=== PATIENT | female | born 1960 | race Caucasian/White ===

== ENCOUNTER 2017-07-10 01:45 | Inpatient (IN) | payer OTHER ==
[2017-07-10] VITALS (40 sets, daily range): BP systolic 99–169; BP diastolic 61–107; PULSE 103–148; RESP 16–44; TEMP 97.9–100.4; O2SAT 94–100
[2017-07-10] MEDS ORDERED: ETOMIDATE 20 MG/10 ML VIAL ONE (01:50)
[2017-07-10] MEDS ORDERED: PROPOFOL 1000 MG/100 ML INJ 100 ML ONE (01:57)
[2017-07-10] MEDS ORDERED: SODIUM CHLOR 0.9% 1000 ML INJ 1,000 ML IV ONE ×2 (02:03→03:45)
--- NOTE | 2017-07-10 02:13 | PD ---
HPI Chief Complaint: Altered Mental Status Time Seen by Provider: 02:00 Travel History International Travel<30 days: No Contact w/Intl Traveler<30days: No Traveled to known affect area: No History of Present Illness HPI The patient is a reportedly 55 year old female who presents to the [facility] emergency department with a history of altered mentation that it been ongoing since yesterday morning. The patient according to ambulance services resides with her mentally delayed adult daughter. Because of this, the history that was obtained from the daughter was very limited. She reported to ambulance services that the patient had not been acting like herself since yesterday morning. She had not been speaking and had mainly been sleeping. She decided to call ambulance services when she was developing shortness of breath. She reported to ambulance services that the patient has a history of liver cancer. The patient came in without an accurate name and date of , and was unable to speak on arrival, therefore she was placed under FELDMAN status. The patient was noted to have a blood sugar of 130 prior to arrival. The patient was noted to have a pulse in the 140s, respiratory rate of 28, O2 saturation was 95-98% on room air. The patient attempts to follow commands and attempts to speak, however she says nothing intelligible. The patient is very tachypneic on arrival with congested breathing. [facility] Past Medical History Narrative Medical The patient's past medical history according to her daughter is significant for liver cancer and thrombocytopenia. The patient's name was able to be identified and her records pulled up at this facility. The patient's name is Kyleigh Mott. 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 She is followed by for her oncology care. The patient was last seen according to the record by him on June 20, 2017. The patient's recent medical history has been complicated by thrombocytopenia, pulmonary embolism with lower extremity DVT. According to the record, he stated that she is unable to undergo anticoagulation due to her thrombocytopenia. The patient has a history of an abdominal aortic aneurysm, asthma, coronary artery disease, hyperlipidemia, hypertension, chronic renal insufficiency. Cancer: Yes (LUNG/LIVER) Diminished Hearing: No (UTO) Tetanus Vaccination: Unknown Past Surgical History Narrative Surgical The patient's past surgical history is unable to be obtained. The patient's past surgical history according to Dr. Singh's record consists of an adenoidectomy, tonsillectomy, CT-guided liver biopsy. Surgical History: Unable to Obtain Social History Alcohol Use: No (UTO) Tobacco Use: No (UTO) Substance Use: No (UTO) Allergies-Medications (Allergen,Severity, Reaction): Coded Allergies: Unable to Assess (Verified Allergy, Unknown, 07/10/17) Reported Meds & Prescriptions Reported Meds & Active Scripts Active Active Prescriptions or Reported Medications Unobtainable Review of Systems ROS Limitations: Altered Mental Status, Unresponsive Eyes: No: Visual changes Cardiovascular: Positive: Dyspnea on exertion Respiratory: Positive: Shortness of Breath Neurologic: Positive: Weakness (generalized weakness), Change in Mentation Physical Exam Narrative General: The patient is a well-developed, thin appearing female, in acute respiratory distress on arrival, tachypneic, with accessory muscle use. Head and Neck exam: Head is normocephalic atraumatic. Eyes: Extraocular motion is and able to be accomplished in this patient that is in acute respiratory distress. The patient has a disconjugate gaze noted. Nose: Midline septum with pink mucous membranes Mouth: Dentition unremarkable. Moist mucus membranes. Posterior oropharynx is not erythematous. No tonsillar hypertrophy. Uvula midline. Airway patent. Neck: No palpable lymphadenopathy. No nuchal rigidity. No thyromegaly. Cardiovascular: Sinus tachycardia in the 120s to 130s without murmurs, gallops, or rubs. No pulse deficit to the extremities and simultaneous auscultation and palpation of her radial artery. Lungs: Scattered rhonchi throughout bilateral lung moreno with decreased breath sounds in bilateral bases. The patient has accessory muscle use noted. Abdomen: Soft, without tenderness to palpation in all 4 quadrants of the abdomen. No guarding, rebound, or rigidity. Normal bowel sounds are audible. Extremities: No clubbing, cyanosis, or edema. 2+ pulses in bilateral upper extremities, 1+ pulses in bilateral lower extremities. The patient's lower extremities appear to be mottled. Neurologic Exam: The patient is nonverbal on arrival. The patient does follow some commands and opens her mouth for examination. The patient is very tachypneic on arrival. The patient is moving all extremities equally with generalized weakness. The patient has intact sensation over all dermatomes. Skin Exam: No rash noted. Intact skin that is warm and diaphoretic. Data Data Last Documented VS Vital Signs Date Time Temp Pulse Resp B/P Pulse Ox O2 Delivery O2 Flow Rate FiO2 07/10/17 04:26 97.9 129 22 118/82 96 Ventilator 45 Orders Etomidate Inj (Amidate Inj) (07/10/17 01:50) Propofol 1000 Mg/100 Ml Inj (Diprivan 10 (07/10/17 01:57) Electrocardiogram (07/10/17 02:03) Complete Blood Count With Diff (07/10/17 02:03) Comprehensive Metabolic Panel (07/10/17 02:03) Creatine Kinase (Cpk) (07/10/17 02:03) Ckmb (Isoenzyme) Profile (07/10/17 02:03) Troponin I (07/10/17 02:03) B-Type Natriuretic Peptide (07/10/17 02:03) Prothrombin Time / Inr (Pt) (07/10/17 02:03) Act Partial Throm Time (Ptt) (07/10/17 02:03) Arterial Blood Gas (Abg) (07/10/17 02:03) Blood Culture (07/10/17 02:03) C-Reactive Protein (Crp) (07/10/17 02:03) Lipase (07/10/17 02:03) Urinalysis - C+S If Indicated (07/10/17 02:03) Magnesium (Mg) (07/10/17 02:03) Ammonia (07/10/17 02:03) Thyroid Stimulating Hormone (07/10/17 02:03) Chest, Single Ap (07/10/17 02:03) Ct Brain W/O Iv Contrast(Rout) (07/10/17 02:03) Iv Access Insert/Monitor (07/10/17 02:03) Ecg Monitoring (07/10/17 02:03) Oximetry (07/10/17 02:03) Urinary Catheter Insert/Apply (07/10/17 02:03) Lino-Gastric Tube Insert/Mon (07/10/17 02:03) Drug Screen, Random Urine (07/10/17 02:03) Alcohol (Ethanol) (07/10/17 02:03) Lactic Acid Sepsis Protocol (07/10/17 02:03) Etomidate Inj (Amidate Inj) (07/10/17 02:15) Succinylcholine Inj (Quelicin Inj) (07/10/17 02:15) Albuterol-Ipratropium Neb (Duoneb Neb) (07/10/17 02:15) Sodium Chloride 0.9% Flush (Ns Flush) (07/10/17 02:15) Sodium Chlor 0.9% 1000 Ml Inj (Ns 1000 M (07/10/17 02:03) Propofol 1000 Mg/100 Ml Inj (Diprivan 10 (07/10/17 02:15) ^ Infusion (07/10/17 02:03) RASS (07/10/17 02:03) Neurological Rass Scale SHARITA.Q2H (07/10/17 02:03) Sodium Chlorid 0.9% 500 Ml Inj (Ns 500 M (07/10/17 02:30) Albuterol-Ipratropium Neb (Duoneb Neb) (07/10/17 02:30) Furosemide Inj (Lasix Inj) (07/10/17 02:30) CKMB (07/10/17 02:10) CKMB% (07/10/17 02:10) Sodium Chlor 0.9% 1000 Ml Inj (Ns 1000 M (07/10/17 03:45) Albuterol-Ipratropium Neb (Duoneb Neb) (07/10/17 03:45) Resp Ventilation- Pressure (07/10/17 ) Vancomycin Inj (Vancomycin Inj) (07/10/17 03:45) Piperacil-Tazo 3.375 Gm Premix (Zosyn 3. (07/10/17 03:45) Diltiazem Inj (Cardizem Inj) (07/10/17 03:45) Diltiazem Inj (Cardizem Inj) (07/10/17 03:45) Salicylates (Aspirin) (07/10/17 03:47) Tylenol (Acetaminophen) (07/10/17 03:47) Ct Pulmonary Angiogram (07/10/17 04:11) Admit To Inpatient (07/10/17 ) Inpatient Certification (07/10/17 ) Code Status (07/10/17 04:13) Vital Signs (Adult) SHARITA.Q1H (07/10/17 04:13) Activity Bed Rest (07/10/17 04:13) Conveyor Monitor / Telemetry SHARITA.Q8H (07/10/17 04:13) Intake + Output SHARITA.Q8H (07/10/17 04:13) Bedside Glucose SHARITA.BGM (07/10/17 04:13) Urinary Catheter Management SHARITA.Q8H (07/10/17 04:13) Diet Npo (07/10/17 Breakfast) Sodium Chlor 0.9% 1000 Ml Inj (Ns 1000 M (07/10/17 04:13) Sodium Chloride 0.9% Flush (Ns Flush) (07/10/17 04:15) Sodium Chloride 0.9% Flush (Ns Flush) (07/10/17 09:00) Albuterol-Ipratropium Neb (Duoneb Neb) (07/10/17 10:00) Albuterol Neb (Albuterol Neb) (07/10/17 04:15) Chlorhexidine 0.12% Liq (Peridex 0.12% L (07/10/17 08:00) Pantoprazole Inj (Protonix Inj) (07/10/17 09:00) Complete Blood Count With Diff (07/11/17 06:00) Comprehensive Metabolic Panel (07/11/17 06:00) Creatine Kinase (Cpk) (07/10/17 04:13) Creatine Kinase (Cpk) (07/10/17 10:13) Troponin I (07/10/17 04:13) Troponin I (07/10/17 10:13) Sputum Culture And Gram Stain (07/10/17 04:13) Echo 2d Comp With Doppler (07/10/17 ) Resp Pulse Oximetry (07/10/17 ) Resp Ventilation- Volume (07/10/17 ) Consult Cm-Day 5 Ltac Eval (07/10/17 ) ^ Initiate Protocol (07/10/17 04:13) Instruction (07/10/17 04:13) [facility] Nursing Information (07/10/17 04:15) Chlorhexidine 2% Cloth (Chlorhexidine 2% (07/11/17 04:00) Chlorhexidine 2% Cloth (Chlorhexidine 2% (07/10/17 04:15) Mrsa Pcr Surveillance (07/10/17 04:13) Insulin Aspart Supplemtl Scale (Novolog (07/10/17 06:00) Propofol 1000 Mg/100 Ml Inj (Diprivan 10 (07/10/17 04:15) Lactic Acid (07/10/17 09:00) Basic Metabolic Panel (Bmp) (07/10/17 09:00) Piperacil-Tazo 3.375 Gm Premix (Zosyn 3. (07/10/17 10:00) Consult Neurology (07/10/17 ) Ct Abd/Pel W Iv Contrast(Rout) (07/10/17 ) (Hub Use Only)Inp Phy Cons/Ref (07/10/17 ) Sodium Bicarbonate 8.4% Inj (Sodium Bica (07/10/17 04:45) Sodium Bicarbonate 8.4% Inj (Sodium Bica (07/10/17 04:45) Admit Order (Ed Use Only) (07/10/17 04:46) Labs Laboratory Tests Test 07/10/17 07/10/17 07/10/17 07/10/17 02:10 02:50 04:25 04:30 White Blood Count 10.6 TH/MM3 Red Blood Count 3.30 MIL/MM3 Hemoglobin 10.2 GM/DL Hematocrit 31.3 % Mean Corpuscular Volume 94.7 FL Mean Corpuscular Hemoglobin 30.7 PG Mean Corpuscular Hemoglobin 32.5 % Concent Red Cell Distribution Width 23.1 % Platelet Count 27 TH/MM3 Mean Platelet Volume 9.6 FL Neutrophils (%) (Auto) 62.4 % Lymphocytes (%) (Auto) 17.5 % Monocytes (%) (Auto) 14.8 % Eosinophils (%) (Auto) 4.1 % Basophils (%) (Auto) 1.2 % Neutrophils # (Auto) 6.6 TH/MM3 Lymphocytes # (Auto) 1.9 TH/MM3 Monocytes # (Auto) 1.6 TH/MM3 Eosinophils # (Auto) 0.4 TH/MM3 Basophils # (Auto) 0.1 TH/MM3 CBC Comment AUTO DIFF Differential Comment AUTO DIFF CONFIRMED Platelet Estimate LOW Platelet Morphology Comment ENLARGED Acanthocytes OCC Keratocytes OCC Prothrombin Time 17.8 SEC Prothromb Time International 1.6 RATIO Ratio Activated Partial 28.6 SEC Thromboplast Time Urine Color YELLOW Urine Turbidity HAZY Urine pH 5.5 Urine Specific Bethany 1.025 Urine Protein 100 mg/dL Urine Glucose (UA) NEG mg/dL Urine Ketones 10 mg/dL Urine Occult Blood SMALL Urine Nitrite NEG Urine Bilirubin NEG Urine Urobilinogen LESS THAN 2.0 MG/DL Urine Leukocyte Esterase NEG Urine RBC 1 /hpf Urine WBC 2 /hpf Urine Squamous Epithelial 3 /hpf Cells Urine Hyaline Casts 5 /lpf Urine Mucus FEW /lpf Microscopic Urinalysis Comment CULT NOT INDICATED Sodium Level 136 MEQ/L Potassium Level 5.1 MEQ/L Chloride Level 104 MEQ/L Carbon Dioxide Level 18.3 MEQ/L Anion Gap 14 MEQ/L Blood Urea Nitrogen 33 MG/DL Creatinine 1.45 MG/DL Estimat Glomerular Filtration 31 ML/MIN Rate Random Glucose 146 MG/DL Lactic Acid Level 4.2 mmol/L 3.6 mmol/L Calcium Level 8.7 MG/DL Magnesium Level 2.0 MG/DL Total Bilirubin 0.8 MG/DL Aspartate Amino Transf 55 U/L (AST/SGOT) Alanine Aminotransferase 21 U/L (ALT/SGPT) Alkaline Phosphatase 149 U/L Ammonia 26 MCMOL/L Total Creatine Kinase 114 U/L Creatine Kinase MB 2.3 NG/ML Troponin I 0.11 NG/ML C-Reactive Protein 8.88 MG/DL B-Type Natriuretic Peptide 537 PG/ML Total Protein 6.4 GM/DL Albumin 2.6 GM/DL Lipase 86 U/L Thyroid Stimulating Hormone 1.630 uIU/ML 3rd Gen Urine Opiates Screen NEG Urine Barbiturates Screen NEG Urine Amphetamines Screen NEG Urine Benzodiazepines Screen POS Urine Cocaine Screen NEG Urine Cannabinoids Screen NEG Ethyl Alcohol Level LESS THAN 3 MG/DL Blood Gas Puncture Site RT RADIAL Blood Gas Patient Temperature 98.6 Blood Gas HCO3 15 mmol/L Blood Gas Base Excess -9.4 mmol/L Blood Gas Oxygen Saturation 98 % Arterial Blood pH 7.34 Arterial Blood Partial 30 mmHg Pressure CO2 Arterial Blood Partial 354 mmHG Pressure O2 Arterial Blood Oxygen Content 13.2 Vol % Arterial Blood 2.2 % Carboxyhemoglobin Arterial Blood Methemoglobin 0.4 % Blood Gas Hemoglobin 8.9 G/DL Oxygen Delivery Device VENTILATOR Blood Gas Ventilator Setting PRVC/AC Blood Gas Inspired Oxygen 100 % Salicylates Level LESS THAN 1.7 MG/DL Acetaminophen Level 2.8 MCG/ML MDM Medical Decision Making Medical Screen Exam Complete: Yes Emergency Medical Condition: Yes Medical Record Reviewed: Yes Interpretation(s) Last Impressions Chest X-Ray 07/10/17 0203 Signed Impressions: Service Date/Time: Monday, July 10, 2017 02:19 - CONCLUSION: 1. ET tube in good position. 2. Consolidative infiltrates involving most of the right lung with associated right pleural effusion. Patchy infiltrates in the left lower lung. Ralph Jin MD Differential Diagnosis Pneumonia, versus congestive heart failure, versus intracranial hemorrhage, versus acute coronary syndrome, versus renal failure with pulmonary edema Narrative Course During the course of the patients emergency department visit, the patient had IV access obtained and blood work sent for analysis. The patient states on a tool and gauge inspector with oximetry and blood pressure monitoring. The patient was prepped for rapid sequence intubation. The patient was intubated by me. A Thao catheter was placed to gravity. An OG tube was placed on low intermittent suction. The patient was initially provided etomidate and succinylcholine for intubation. The patient was sedated on propofol on the ventilator. The patients laboratory studies were reviewed and remarkable for a white count of 10.6, hemoglobin 10.2, platelets 27 with monocytes 14.8, CMP is remarkable for a CO2 of 18.3, BUN 33, creatinine 1.45, glucose 146, AST 55, ALT 21, alkaline phosphatase 149, CPK is 114, CK-MB 2.3, troponin I 0.11, C-reactive protein 8.88, BNP 537, albumin 2.6, lipase 86, TSH 1.63, ammonia level is 26, lactic acid 4.2, PT 17.8, INR 1.6, PTT 28.6, acetaminophen is 2.8, urine drug screen is positive for benzodiazepine's, alcohol level less than 3, salicylate less than 1.7, urinalysis shows 100 protein, 10 ketones, small occult blood Radiology studies were reviewed and remarkable for a chest x-ray that shows an endotracheal tube is in good position, consolidative infiltrate involving most of the right lung with associated right pleural effusion, patchy infiltrates in the left lower lung. CT scan of the brain shows focal areas of increased density in the deep white matter tracks on the right possible hemorrhage, lytic lesions of the left frontal bone concerning for metastatic disease, CT scanning of the chest shows no evidence of pulmonary embolism, diffuse bilateral opacities and consolidation in the lungs, large right pleural effusion and significant adenopathy in the middle mediastinum MM right hilum highly suspicious for malignancy. CT scan of the abdomen and pelvis shows findings suggestive of metastatic disease with multiple low-density lesions in the liver as solitary low-density lesion in the inferior spleen and probable left adrenal mass, abdominal aortic aneurysms both measuring 3 cm. The patient has absent enhancement in the inferior left kidney suggesting either an infiltrative process or vascular compromise, multiple abnormalities of the chest described on CT pulmonary angiogram. The patient will be typed and crossmatched for platelet administration and fresh frozen plasma administration. The patient on recurrent evaluation was noted to have brought the red sputum suspicious for pulmonary edema. The patient was given Lasix 40 mg IV. The patient's urine output was monitored closely. The patient had very little urine output noted. The patient was given additional IV fluids initially, she was given 500 mL of normal saline. She was given a second 500 mL IV fluid bolus. She was given DuoNeb 2. Due to a concern of sepsis, the patient was given vancomycin 1 g IV, Zosyn 3.375 g IV. The patient was judiciously hydrated as it appeared that she has pulmonary edema with elevated BNP. The patients results were discussed with the patient, including the plan of care. I explained that further testing and/ or monitoring is indicated based on the patients history, examination, and/ or laboratory findings. Therefore, I recommended admission for additional evaluation. The patient expressed understanding and was agreeable with this plan. The patient was admitted to the hospital in critical and sent to a bed under the care of the elementary instructional coach. Critical Care Narrative Aggregate critical care time was 40 minutes. Time to perform other separately billable procedures was not included in the critical care time. My time did not include minutes spent treating any other patients simultaneously or on activities that did not directly contribute to the patient's treatment. The services I provided to this patient were to treat and/or prevent clinically significant deterioration that could result in: [-] I provided critical care services requiring my management, as noted below: Chart data review, documentation time, medication orders and management, vital sign assessments/reviewing monitor data, ordering and reviewing lab tests, ordering and interpreting/reviewing x-rays and diagnostic studies, care of the patient and discussion of the patient with the admitting physicians. Procedures Procedure Narrative INTUBATION: The patient was put in optimal position for the procedure. Rapid sequence intubation was initiated by me using 20 milligrams of etomidate IV and 100 milligrams of succinylcholine IV. The patient was intubated with a 7-1/2 cuffed endotracheal tube. The patient was intubated with the use of a Mac 4 blade. The patient's cords were easily visualized. Tube placement was confirmed by visualization of the tube and balloon passing through the cords, capnometry and subsequent chest x-ray. Breath sounds were equal and well aerated bilaterally postintubation. No breath sounds over stomach. Patient tolerated procedure well. Diagnosis Primary Impression: Respiratory failure Qualified Code: J96.00 - Acute respiratory failure, unspecified whether with hypoxia or hypercapnia Additional Impressions: Pneumonia Qualified Code: J18.9 - Pneumonia of both lungs due to infectious organism, unspecified part of lung Pleural effusion Thrombocytopenia Metastatic lung cancer (metastasis from lung to other site) Qualified Code: C34.90 - Primary malignant neoplasm of lung metastatic to other site, unspecified laterality Admitting Information Admitting Physician Requests: Admit Scripts Unable to Obtain Active Prescriptions or Reported Meds Nayana Kidd MD Jul 10, 2017 02:13
[2017-07-10] MEDS ORDERED: SODIUM CHLORIDE 0.9% FLUSH 10 ML FLUSH IVF PRN (02:15)
[2017-07-10] MEDS ORDERED: SUCCINYLCHOLINE CHLORIDE 200 MG/10 ML VIAL IVP ONE (02:15)
[2017-07-10] MEDS ORDERED: ETOMIDATE 20 MG/10 ML VIAL IVP ONE (02:15)
[2017-07-10] MEDS ORDERED: RESP: ALBUTEROL 2.5 MG/IPRATROPIUM 0.5 MG NEB (SCH) INH (02:15)
[2017-07-10] MEDS: PROPOFOL 1000 MG/100 ML INJ 100 ML IV SCH ×4 (02:19→18:28)
[2017-07-10] MEDS ORDERED: RESP: ALBUTEROL 2.5 MG/IPRATROPIUM 0.5 MG NEB (SCH) NEB ONE ×2 (02:30→03:45)
[2017-07-10] MEDS ORDERED: SODIUM CHLORID 0.9% 500 ML INJ 500 ML IV ONE (02:30)
[2017-07-10] MEDS ORDERED: FUROSEMIDE 40 MG/4 ML VIAL IV PUSH ONE (02:30)
--- NOTE | 2017-07-10 02:34 | RADRPT ---
EXAM DATE/TIME: 07/10/2017 02:19 [place] COMPARISON: No previous studies available for comparison. INDICATIONS : Short of breath. MEDICAL HISTORY : None. SURGICAL HISTORY : None. ENCOUNTER: Initial ACUITY: 1 day PAIN SCORE: 0/10 LOCATION: Bilateral chest FINDINGS: Endotracheal tube tip well above the simi. Gastric tube side port is projected within the stomach. There is diffuse patchy partially consolidated infiltrate throughout most of the right lung and shira e patchy non-consolidative infiltrates in the lower left lung. There is blunting of the costophrenic angle on the right side suggesting pleural effusion. The heart is upper limits normal size. CONCLUSION: 1. ET tube in good position. 2. Consolidative infiltrates involving most of the right lung with associated right pleural effusion. Patchy infiltrates in the left lower lung. Ralph Jin MD on July 10, 2017 at 2:31 Board Certified Radiologist. This report was verified electronically.
[2017-07-10 02:46] LABS: BLOOD, URINE SMALL (NEG); GLUCOSE,URINE NEG (NEG); HYALINE CAST, URINE 5 /lpf (RARE); KETONE, URINE 10 mg/dL (NEG); MUCUS URINE FEW /lpf (OCC); NITRITE,URINE NEG (NEG); PH, URINE 5.5 (5.0-8.5); SQUAMOUS EPITHELIAL CELL URINE 3 /hpf (0-5); URINE COLOR YELLOW (YELLW/STRAW)
[2017-07-10 02:48] LABS: COMMENT (UR) CULT NOT INDICATED; CULTURE IF INDICATED CULT NOT INDICATED
[2017-07-10 02:50] LABS: AUTOMATED NEUTROPHIL # 6.6 TH/MM3 (1.8-7.7); BASOPHIL # 0.1 TH/MM3 (0-0.2); BASOPHIL % 1.2 % (0.0-2.0); EOSINOPHIL # 0.4 TH/MM3 (0-0.4); EOSINOPHIL % 4.1 % (0.0-4.0); HEMATOCRIT 31.3 % (35.0-46.0); LYMPH % 17.5 % (9.0-44.0); LYMPHOCYTE # 1.9 TH/MM3 (1.0-4.8); MEAN CELL VOLUME 94.7 FL (80.0-100.0); MEAN CORPUSCULAR HEMOGLOBIN 30.7 PG (27.0-34.0); MEAN CORPUSCULAR HGB CONC 32.5 % (32.0-36.0); MONO % 14.8 % (0.0-8.0); NEUT % 62.4 % (16.0-70.0); PLATELET COUNT 27 TH/MM3 (150-450); RED CELL DISTRIBUTION WIDTH 23.1 % (11.6-17.2); WHITE BLOOD COUNT 10.6 TH/MM3 (4.0-11.0)
[2017-07-10 02:53] LABS: HEMO FLAGS AUTO DIFF
[2017-07-10 03:07] LABS: ANION GAP 14 MEQ/L (5-15); AST (GOT) 55 U/L (15-37); BICARBONATE 18.3 MEQ/L (21.0-32.0); BLOOD UREA NITROGEN 33 MG/DL (7-18); CHLORIDE 104 MEQ/L (98-107); GLOMERULAR FILTRATION RATE 31 ML/MIN (>89); POTASSIUM 5.1 MEQ/L (3.5-5.1); SODIUM (NA) 136 MEQ/L (136-145)
[2017-07-10 03:08] LABS: ALCOHOL LESS THAN 3 MG/DL (0-5); APTT (PATIENT) 28.6 SEC (24.3-30.1); INTERNATIONAL NORMALIZED RATIO 1.6 RATIO; PROTHROMBIN TIME - PATIENT 17.8 SEC (9.8-11.6)
[2017-07-10 03:10] LABS: BLOOD GAS BASE EXCESS -9.4 mmol/L (-2-2); BLOOD GAS CARBOXYHEMOGLOBIN 2.2 % (0-4); BLOOD GAS HCO3 15 mmol/L (22-26); BLOOD GAS METHEMOGLOBIN 0.4 % (0-2); BLOOD GAS O2 HGB SATURATION 98 % (90-100); BLOOD GAS OXYGEN CONTENT 13.2 Vol % (12.0-20.0); BLOOD GAS PCO2 30 mmHg (38-42); BLOOD GAS PO2 354 mmHG (61-120); BLOOD GAS TOTAL HGB 8.9 G/DL (12.0-16.0); CRITICAL VALUE YES; OXYGEN DEVICE VENTILATOR; TEMP CORR TO 98.6
[2017-07-10 03:11] LABS: DRAW SITE RT RADIAL; FIO2 100 %; NUMBER OF ARTERIAL PUNCTURES 1; STAT YES; ULNAR PULSE PRESENT; VENT SETTINGS PRVC/AC
[2017-07-10 03:22] LABS: ALKALINE PHOSPHATASE 149 U/L (45-117); ALT (GPT) 21 U/L (10-53); CREATINE KINASE 114 U/L (26-192); TOTAL BILIRUBIN ADULT 0.8 MG/DL (0.2-1.0)
[2017-07-10 03:25] LABS: SCAN/DIFF AUTO DIFF CONFIRMED
[2017-07-10 03:27] LABS: ACANTHOCYTES OCC (NORMAL); KERATOCYTES OCC (NORMAL); PLATELET ESTIMATE SMEAR LOW (NORMAL)
[2017-07-10 03:28] LABS: PLATELET MORPHOLOGY ENLARGED (NORMAL)
[2017-07-10 03:35] LABS: CKMB 2.3 NG/ML (0.5-3.6)
[2017-07-10] MEDS ORDERED: DILTIAZEM HCL 25 MG/5 ML VIAL IVP ONE (03:45)
[2017-07-10] MEDS ORDERED: PIPERACIL-TAZO 3.375 GM PREMIX 50 ML IV ONE (03:45)
[2017-07-10] MEDS ORDERED: VANCOMYCIN INJ 1,000 MG in SODIUM CHLOR 0.9% 250 ML INJ 250 ML IV ONE (03:45)
[2017-07-10] MEDS ORDERED: CHLORHEXIDINE GLUCONATE 2 % 1 PACK (2 CLOTHS) TOP PRN (04:15)
[2017-07-10] MEDS ORDERED: RESP: ALBUTEROL 2.5 MG/3 ML NEB (PRN) INH (04:15)
[2017-07-10] MEDS ORDERED: MISCELLANEOUS NURSING INFORMATION XX SCH (04:15)
[2017-07-10] MEDS ORDERED: SODIUM CHLORIDE 0.9% FLUSH 10 ML FLUSH IV FLUSH PRN (04:15)
[2017-07-10 04:28] LABS: LACTIC ACID GHOST NOT REPORTABLE
[2017-07-10] MEDS ORDERED: SODIUM BICARBONATE 8.4% INJ 50 MEQ/50 ML SYR IV PUSH ONE ×2 (04:45)
--- NOTE | 2017-07-10 05:18 | HHI.HP ---
HPI Service Critical Care Medicine Primary Care Physician Unknown Admission Diagnosis Respiratory Failure, thrombocytopenia Diagnosis: Chief Complaint: Shortness of breath, altered mental status Travel History International Travel<30 Days: No Contact w/Intl Traveler <30 Da: No Traveled to Known Affected Are: No History of Present Illness HPI 56-year-old female with a history of metastatic adenocarcinoma. Lung with brain metastases as well as intrathoracic and intra-abdominal metastases status post previous chemotherapy being followed by Dr. Singh for oncology. She also has a history of DVT and pulmonary embolism however is not a candidate for anticoagulation because of thrombocytopenia and brain metastases. Patient lives with her mentally adult daughter. She reportedly developed altered mental status a day prior to her presentation. Her daughter called EMS when she developed shortness of breath. Patient was tachycardic with respiratory rate in the 30s O2 sat mid 90s on room air however subsequently decompensated and following arrival in the ER was intubated and placed on mechanical ventilation. Prior to intubation patient attempted to follow commands however had unintelligible speech. [facility] Past Medical History Narrative Medical The patient's past medical history according to her daughter is significant for liver cancer and thrombocytopenia. Cancer: Yes (LUNG) with metastases to the brain as well as intrathoracic and intra-abdominal metastases DIC Coronary artery disease Hyperlipidemia Previous radiation therapy in 2017 at [place] Hypertension Leptomeningeal intracranial metastatic disease Abdominal aortic aneurysm Diminished Hearing: No (UTO) Tetanus Vaccination: Unknown History of DVTs, PE Past Surgical History Narrative Surgical The patient's past surgical history is unable to be obtained. Surgical History: Unable to Obtain Social History Alcohol Use: No (UTO) Tobacco Use: No (UTO) Substance Use: No (UTO) Allergies-Medications Allergies-Medications (Allergen,Severity, Reaction): Coded Allergies: Unable to Assess (Verified Allergy, Unknown, 07/10/17) Reported Meds & Prescriptions Reported Meds & Active Scripts Active Active Prescriptions or Reported Medications To be clarified ROS Review of Systems ROS Limitations: Altered Mental Status, Unresponsive Review of Systems ROS Limitations: Clinical Condition, Intubated Assessment and Plan Assessment and Plan 56-year-old female with: Encephalopathy Acute respiratory failure on mechanical ventilation Metastatic lung cancer with brain metastases, intrathoracic metastases, intra- abdominal metastases Thrombocytopenia CAD History of pulmonary embolism History of DVT Hyperlipidemia history of hypertension Plan: Neuro: Sedation with propofol, follow up head CT. Encephalopathy likely from metastatic brain disease however need to rule out intracranial hemorrhage. Cardiovascular: IV hydration, watch for hypotension. History of PE noted. Cannot be anticoagulated due to brain metastases. Pulmonary: Continue mechanical ventilation, vent bundle, bronchodilators. Awaiting CT pulmonary angiogram. She has a history of pulmonary emboli however per Dr. Singh not a good candidate for anticoagulation at this time. GI/liver: Keep nothing by mouth for now. Obtain CT abdomen pelvis for further evaluation of metastatic disease. ID: Follow-up cultures. Empiric antibiotic coverage with IV Zosyn. Renal/: IV hydration, strict intake output, monitor and replete electrolytes, follow BUN/creatinine. Endocrine: Sliding scale insulin for glycemic control. Hemonc: We'll consult Dr. Singh who has followed the patient for her metastatic lung cancer as well as thrombocytopenia. Prophylaxis: PPI/SCDs. Awaiting head CT, CT pulmonary angiogram and CT abdomen pelvis at the time of this dictation which will be reviewed when available. Condition critical. We'll consult palliative care service to assist with deciding goals of therapy. Time spent on critical care excluding procedures 60 minutes Petr Ross MD Jul 10, 2017 05:18
[2017-07-10] MEDS ORDERED: IODIXANOL 320 MG/ML 10 ML VIAL (for Rad CT) IV ONE (05:21)
[2017-07-10] MEDS: SODIUM CHLOR 0.9% 1000 ML INJ 1,000 ML IV SCH ×2 (05:43→18:27)
--- NOTE | 2017-07-10 05:45 | RADRPT ---
EXAM DATE/TIME: 07/10/2017 05:21 [facility] COMPARISON: No previous studies available for comparison. INDICATIONS : Shortness of breath. IV CONTRAST: 50 cc Visipaque (iodixanol) IV ; Cumulative dose for multiple exams. RADIATION DOSE: 23.38 CTDIvol (mGy) MEDICAL HISTORY : Carcinoma, lung. Carcinoma, liver. SURGICAL HISTORY : Non-responsive. ENCOUNTER: Initial ACUITY: 1 day PAIN SCALE: Non-responsive LOCATION: Bilateral chest TECHNIQUE: Volumetric scanning of the chest was performed using a pulmonary embolism protocol MIP images were re constructed. Using automated exposure control and adjustment of the mA and/or kV according to patien t size, radiation dose was kept as low as reasonably achievable to obtain optimal diagnostic quality images. DICOM format image data is available electronically for review and comparison. Follow-up recommendations for detected pulmonary nodules are based at a minimum on nodule size and pa tient risk factors according to Fleischner Society Guidelines. FINDINGS: PULMONARY ARTERIES: No filling defects are seen in the pulmonary arteries through the segmental level. LUNGS: Abnormal. Diffuse interstitial infiltrates in the right midlung, consolidation with volume loss in t he right lower lobe and patchy areas of consolidative infiltrate involving loss in the left lower lob e. PLEURAE: Abnormal. Large right pleural effusion measuring up to 5 cm in thickness. MEDIASTINUM: Abnormal. Prominent adenopathy in the middle mediastinum including azygos node measuring 4.2 cm, mul tiple left periaortic nodes measuring up to 2 cm and large subcarinal node measuring 3.3 cm. There i s also fullness in the hilar region bilaterally with right hilar mass measuring 2.0 cm. CONCLUSION: 1. The study is negative for pulmonary embolism. 2. Diffuse bilateral opacities and consolidation in the lungs. 3. Large right pleural effusion and significant adenopathy in the middle mediastinum and right hilum, highly suspicious for malignancy. Ralph Jin MD on July 10, 2017 at 5:39 Board Certified Radiologist. This report was verified electronically.
[2017-07-10] MEDS: DILTIAZEM INJ 125 MG in SODIUM CHLORIDE 0.9% INJ 100 ML IV SCH ×2 (05:46→14:53)
--- NOTE | 2017-07-10 05:52 | RADRPT ---
EXAM DATE/TIME: 07/10/2017 05:21 [facility] COMPARISON: No previous studies available for comparison. INDICATIONS : Abdominal pain. IV CONTRAST: 50 cc Visipaque (iodixanol) IV ; Cumulative dose for multiple exams. ORAL CONTRAST: No oral contrast ingested. RADIATION DOSE: 5.83 CTDIvol (mGy) MEDICAL HISTORY : Carcinoma, lung. Carcinoma, liver. SURGICAL HISTORY : Non-responsive. ENCOUNTER: Initial ACUITY: 1 day PAIN SCALE: Non-responsive LOCATION: All quadrants. TECHNIQUE: Volumetric scanning of the abdomen and pelvis was performed. Using automated exposure control and ad justment of the mA and/or kV according to patient size, radiation dose was kept as low as reasonably achievable to obtain optimal diagnostic quality images. DICOM format image data is available electro nically for review and comparison. FINDINGS: LOWER LUNGS: Bilateral lower lobe consolidation and large right pleural effusion. LIVER: Abnormal. Enlarged left lobe with multifocal varying sized low-density masses. There are also scatt ered low density masses in the right lobe measuring up to 1.8 cm. No calcified gallstones. SPLEEN: Well-defined 1.5 cm hypodensity in the posterior inferior pole. PANCREAS: Within normal limits. KIDNEYS: Abnormal. Absent enhancement in the parenchyma of the lower pole on the left side. Atrophic right k idney with a exophytic cyst arising from the lower pole. ADRENAL GLANDS: Enlarged left adrenal measuring 1.7 cm suggesting an enhancing mass. VASCULAR: Saccular aneurysm of the distal aorta measuring 3.6 cm with prominent amount of intraluminal thrombus . There is a saccular aneurysm of the infrarenal aorta, with out thrombus, which measures 3 cm.BOWEL /MESENTERY: No dilated loops of small or large bowel. ABDOMINAL WALL: Within normal limits. RETROPERITONEUM: There is no lymphadenopathy. BLADDER: Thao catheter. REPRODUCTIVE: Within normal limits. INGUINAL: There is no lymphadenopathy or hernia. MUSCULOSKELETAL: Within normal limits for patient age. CONCLUSION: 1. Findings suggest metastatic disease with multiple low density lesions in the liver, a solitary low density lesion in the inferior spleen, and probable left adrenal mass. 2. 2 abdominal aortic aneurysms, both measuring 3 cm and both being saccular in configuration. 3. Absent enhancement in the inferior left kidney suggesting either an infiltrative process or vascul ar compromise. 4. Multiple abnormalities of the chest, described on CT pulmonary angiogram. Ralph Jin MD on July 10, 2017 at 5:44 Board Certified Radiologist. This report was verified electronically.
--- NOTE | 2017-07-10 06:14 | RADRPT ---
EXAM DATE/TIME: 07/10/2017 05:17 [facility] COMPARISON: No previous studies available for comparison. INDICATIONS : Altered mental status. RADIATION DOSE: 51.84 CTDIvol (mGy) MEDICAL HISTORY : Carcinoma, lung. Carcinoma, liver. SURGICAL HISTORY : Non-responsive. ENCOUNTER: Initial ACUITY: 1 day PAIN SCALE: Non-responsive LOCATION: cranial TECHNIQUE: Multiple contiguous axial images were obtained of the head. Using automated exposure control and adj ustment of the mA and/or kV according to patient size, radiation dose was kept as low as reasonably a chievable to obtain optimal diagnostic quality images. DICOM format image data is available electro nically for review and comparison. FINDINGS: CEREBRUM: The ventricles are normal for age. 5 x 7 mm focal hemorrhage in the right deep frontal white matter t racts. Additional 6 mm area in the centrum semi-ovale region posteriorly on the right. No evidence of midline shift, or acute infarction. No extra-axial fluid collections are seen. POSTERIOR FOSSA: The cerebellum and brainstem are intact. The 4th ventricle is midline. The cerebellopontine angle i s unremarkable. EXTRACRANIAL: The visualized portion of the orbits is intact. SKULL: Lytic lesion in the left frontal region likely metastatic disease No evidence of skull fracture. CONCLUSION: 2 focal areas of increased density in the deep white matter tracts on the right possible hemorrhage. Lytic lesion left frontal bone concerning for metastatic disease. Zefeirno Menendez MD on July 10, 2017 at 6:10 Board Certified Radiologist. This report was verified electronically.
[2017-07-10] MEDS: INSULIN ASPART SUPPLEMENTAL SCALE SQ SCH ×4 (06:25→23:36)
[2017-07-10] MEDS: CHLORHEXIDINE 0.12% (ORAL KIT) 15 ML CUP MT SCH ×2 (08:00→20:26)
[2017-07-10] MEDS ORDERED: SODIUM CHLOR 0.9% 250 ML INJ 250 ML IV ONE (08:15)
[2017-07-10] MEDS ORDERED: diphenhydrAMINE HCL 25 MG CAP PO PRN (08:15)
[2017-07-10] MEDS ORDERED: ACETAMINOPHEN 325 MG TAB PO PRN (08:15)
[2017-07-10] MEDS: methylPREDNISolone SOD SUCC 40 MG/1 ML VIAL IV PUSH SCH ×3 (08:35→23:36)
[2017-07-10] MEDS: PANTOPRAZOLE SODIUM 40 MG VIAL IV SCH (08:35)
[2017-07-10] MEDS: SODIUM CHLORIDE 0.9% FLUSH 10 ML FLUSH IV FLUSH SCH ×2 (09:01→20:26)
[2017-07-10] MEDS: RESP: ALBUTEROL 2.5 MG/IPRATROPIUM 0.5 MG NEB (SCH) NEB (09:06)
--- NOTE | 2017-07-10 09:41 | MB ---
cc: LEEROY BLANCO MD DATE OF CONSULTATION 07/10/2017 DATE OF 1960 ONCOLOGIC DIAGNOSIS Metastatic adenocarcinoma of lung primary; PDL-1, expression is greater than 55%. MOST RECENT TREATMENT She had been on palliative systemic therapy with Ketruda. She had received two doses of this. OTHER HEMATOLOGIC ISSUES 1. Pulmonary emboli associated with lower extremity deep venous Thrombosis. 2. Thrombocytopenia; etiology not known. CHIEF COMPLAINT History obtained from the patient's friend at bedside. The patient herself is intubated and sedated. Per ER records, the patient was brought in due to increasing confusion and difficulty breathing. Shortly after arrival, she was intubated for respiratory failure. Imaging studies of the brain indicated areas of intracranial hemorrhage. CT angiogram of the chest indicated no evidence of pulmonary embolus, however, she did have a large pleural effusion as well as areas of malignancy including mediastinal lymph nodes as well as pulmonary masses. HISTORY OF PRESENT ILLNESS Ms. Mott is a 56-year-old woman who is known to me from my outpatient practice. Ms. Dumas initially presented to [facility] in mid April of 2017 with complaints of headaches and difficulty breathing. She was noted at that time also to have severe thrombocytopenia and imaging studies of the head indicated osseous metastatic disease involving the left frontal lobe of the skull associated with hemorrhage. She had what appeared to be leptomeningeal spread involving the dural membranes. Imaging studies of her thorax indicated a right upper lobe lung mass with mediastinal lymphadenopathy. Multiple liver metastases were also appreciated. At the time of presentation, she also had a deep venous thrombosis of the left lower extremity. The patient's diagnosis was established after she underwent an image guided biopsy of one of the liver masses. Pathologic findings indicated metastatic poorly differentiated non-small cell carcinoma of the lung. Her tumor was positive for PDL-1 with greater than 65% expression. She did undergo palliative radiation to the brain lesions and leptomeningeal disease. She was subsequently initiated on Keytruda systemic immunotherapy. Unfortunately, she had had significant difficulty with thrombocytopenia. Because of the thrombocytopenia, she could not be continued on anticoagulation for management of her pulmonary emboli and deep venous thromboses. She did require platelet transfusions and for a period time was also on corticosteroid therapy. I did purposely discontinued corticosteroid therapy which seem to be moderately beneficial in managing her thrombocytopenia. The reason I discontinue the corticosteroids was to mitigate the immunosuppressive effect of corticosteroids; as we were attempting to harness her immune system's ability to counteract her cancer with the introduction of Keytruda which is an immune modulating treatment relying on the immune systems potency for its anticancer effect. The patient was brought into the emergency department earlier this morning with difficulty breathing, altered mental status and shortly thereafter was intubated for respiratory support. Imaging studies of the brain indicated intracranial hemorrhage. CT angiogram of the chest indicated no evidence of pulmonary embolus. PAST MEDICAL HISTORY 1. Metastatic adenocarcinoma of the lung. 2. Pulmonary emboli; presently without evidence of this. 3. Lower extremity deep venous thromboses. 4. Thrombocytopenia. 5. Tobaccoism 6. COPD 7. Coronary artery disease 8. Hyperlipidemia 9. Hypertension 10. 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 PAST SURGICAL HISTORY 1. Adenoidectomy 2. Colonoscopies 3. Tonsil[address]omy 4[address] guided biopsy of liver mass. ALLERGIES CODEINE, FLEXERIL, IODINE, LIPITOR, LORTAB, NITRO-DUR AND PACLITAXEL WHICH CAUSED ASTHMA EXACERBATION AND DIFFICULTY BREATHING. GYNECOLOGIC HISTORY 2, para 1, she had an . She has a 27-year-old daughter with developmental delays and Asperger's. SOCIAL HISTORY The patient is single, she lives at home with her special needs daughter. 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 She has no siblings, all of them are . She has no close relatives. She has smoked about a pack and a half a day since she was 14. FAMILY HISTORY Multiple family members with malignancy, mom of metastatic lung cancer. Father of cancer, primary site not known. Brother of stomach cancer. Maternal uncle had "bone cancer". CURRENT INPATIENT MEDICATIONS 1. Diltiazem infusion per protocol 2. Normal saline infusion 3. Zosyn 3.375 grams IV q.6 h. 4. Propofol for sedation 5. Vancomycin per pharmacy dosing 6. Albuterol/ipratropium nebulizer 7. Diphenhydramine 25 mg p.o. q.6 h as needed 8. Methylprednisolone 40 mg IV q.8 h. 9. Pantoprazole 40 mcg IV daily REVIEW OF SYSTEMS Could not obtain, however per the friend, the patient had been complaining of fatigue, weakness, headaches over the past day. She had also been reporting difficulty breathing. PHYSICAL EXAMINATION VITAL SIGNS: Temperature 98.6 degrees Fahrenheit, heart rate 118 beats per minute, blood pressure is 103/71, O2 sats 98% on 45% FIO2, respiratory rate set at 16. GENERAL PHYSICAL APPEARANCE: Ms. Mott is a middle-aged female, she appears to be critically ill at this time. She is laying in bed. She is intubated, ventilated, sedated. She appears to be pale. HEENT: Head is atraumatic, normocephalic, pupils are reactive. Oral exam, ET tube is in place. RESPIRATORY EXAM: Good air movement bilaterally with good inspiratory and expiratory sounds. Prolonged expiratory phase. CARDIOVASCULAR: Tachycardiac, regular S1-S2. No obvious murmurs, rubs or gallops. ABDOMEN: Protuberant belly, soft and nontender, nondistended, no palpable organ enlargement. EXTREMITIES: No pretibial edema. No calf tenderness. EQUINE DENTIST: No spontaneous or purposeful movements. She is sedated and paralyzed. She has decreased muscle mass and tone. LABORATORY FINDINGS Blood work dated 07/10/2017: WBC count 10.6, hemoglobin 10.4 gm/dl, hematocrit 31%, platelet count 27,000, absolute neutrophil count 6.6. Chemistries: Sodium 138, potassium 5.1, chloride 104, bicarbonate 18.3, BUN 33, creatinine 1.45, EGFR 31, random glucose 146, calcium 8.7, magnesium 2, total bilirubin 0.8, AST 55, ALT 21, alkaline phosphatase 149, CRP 8.8. Troponin I level of 0.11, albumin is 2.6. IMAGING STUDIES CT scan of the head dated 07/10/2017: Two focal areas of increased density in the deep white matter tracts on the right; possible areas of hemorrhage. Lytic lesion on left frontal lobe concerning for metastatic disease. CT angiogram of the chest indicates no evidence of pulmonary embolus. Diffuse bilateral opacities and consolidation in the lungs. Large right-sided pleural effusion with significant adenopathy in the middle mediastinum and the right hilum highly suspicious for malignancy. CT scan of the abdomen dated 07/10/2017 indicates findings consistent with multiple low-density liver lesions. A solitary low-density lesion in the inferior spleen and probable left adrenal mass. She has two abdominal aortic aneurysms. ASSESSMENT Ms. Kyleigh Mott is a 56-year-old lady, she is presently in the hospital under the alias of Elizabeth Greer Stephania. She was brought in by EMS after she was found to be unconscious. She was found to have severe difficulty breathing at home and altered mental status. Shortly after presentation, she was intubated. She is presently sedated. The hospital staff is working to identify her and confirm her identity before changing her name on the charting. This patient is well-known to me, I have been caring for her for the past two months. She was diagnosed in April of 2016 with metastatic adenocarcinoma of the lung, her disease at the time of presentation was metastatic to liver, spleen, adrenal glands as well as with metastatic disease to the leptomeninges as well as to the cranium. Her disease is positive for PDL-1 and based on that, she was initiated on palliative immunotherapy as first line treatment with Keytruda. She had received, I believe, two infusions of this thus far. In addition to this, the patient had received palliative radiation for her leptomeningeal disease as well as her metastatic disease to the calvarium. Additional hematologic issues include pulmonary emboli, lower extremity deep venous thromboses and severe thrombocytopenia all of which were present at the time of diagnosis. The patient unfortunately had been failing to thrive as an outpatient and seemingly was quite frail to the point where we had discussed in the past the goals of care, as well as consideration of palliative interventions and Hospice. She has elected in the past to pursue palliative systemic therapy to help prolong her survival and to help improve disease related symptoms. She now comes in with the above-noted issues, specifically respiratory failure and suspected intracranial bleeding. I have been asked to see her to help define additional goals of care. RECOMMENDATIONS Metastatic adenocarcinoma of the lung with brain metastases, liver metastases and bony metastases: Given her current condition and the clear decline I have observed over the past two months, I feel that aggressive disease, directed therapeutic interventions will not significantly benefit Ms. Dumas. I have therefore requested palliative care to get involved. With the involvement of palliative care, I hope to help facilitate communication with the patient's daughter. Unfortunately, this will be very challenging because the patient's daughter, even though she is an adult, has special needs, she has cognitive deficits I believe and this includes Asperger's syndrome and she is also bipolar. She has been living with her mother and dependent on her mother. The patient has no other family members who can help. There is an acquaintance who is quite helpful, but she has only known the patient for one year and I am not sure if she has been legally designated as a power of attorney recruiter. RECOMMENDATIONS 1. Metastatic lung carcinoma: I would recommend pursuing palliation and comfort oriented care. 2. 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 8 hours. 3. I have ordered platelet transfusions. 4. Obtain MRI of the brain to help differentiate the difference between intracranial bleeding versus additional metastatic disease. MD SHERRILL Patel/THERESA /8:26 AM /9:02 AM
[2017-07-10] MEDS: PIPERACIL-TAZO 3.375 GM PREMIX 50 ML IV SCH ×3 (10:48→20:26)
[2017-07-10 11:03] LABS: BICARBONATE 22.9 MEQ/L (21.0-32.0); POTASSIUM 3.4 MEQ/L (3.5-5.1)
--- NOTE | 2017-07-10 12:58 | PD.CONS ---
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 Irwin and Eloisa Sanders. Palliative care spoke with all 4 cousins; Arturo Irwin , Eloisa Sanders and Tyler Irwin DECLINED to participating in medical decision- making. Therefore, healthcare proxy decision-making falls to patient's cousin Dariana Faulkner. * Patient has 2 friends who have been very involved in her care, Vea and Katya. * GOALS OF CARE: HCP cousin Dariana Faulkner, with support of patient's addl 3 cousins (see above) and pt's 2 best friends Eva and Katya electing to transition patient to comfort-directed care/compassionate withdrawal of life support given patient's poor prognosis and known wishes. Compassionate withdrawal likely to occur this incoming Sunday 07/15 once patient's adult daughter Henny who has cognitive deficits, visits patient and is allowed to ask questions. Tentative family meeting to include daughter Henny scheduled for this Thursday 07/12 in the afternoon. Palliative care to provide emotional support and active listening, palliative care social services specialist and field talent qualification specialist will be present for additional support. Hospice philosophy and benefits introduce to family, patient's daughter likely to benefit from hospice grieving support and follow-ups. * SYMPTOMS: = Shortness of breath, secondary to acute respiratory failure. Remains intratracheally intubated on mechanical ventilation. = Debility, progressive. Worsened during the past 2 months. * Case discussed with Dr. Singh and Dr. Calle. * Spiritual services offered and accepted. Referral made. * Ongoing emotional support and active listening provided. * Palliative care contact information has been provided to patient's family and friends. * Palliative care will continue to follow-up for further clarifications of goals of care and to assist in identification of proxy decision maker. . Time Spent Total Floor Time (mins): 122 (Total time to include review and summarization of available medical records to include prior acute hospitalizations, ED basis and oncology notes, physical exam, 6 separate telephone conversations with patient's cousins and friends (see fam conference time), case discussion with Dr. Singh, Dr. Ross bedside RN.) >50% Counseling/Coord of Care: Yes Thank you for the opportunity to participate in the care of Ms. [id number]. Attestation To help prompt me to consider important information that might be impacting today's encounter and assessment, information from prior notes written by myself or my colleagues may have been "brought forward" into today's note. My signature on this note, however, is an attestation that I personally performed the exam, history, and/or decision-making noted today, and, unless otherwise indicated, the interactions with patient, family, and staff as well as the review of records all occurred today. I also attest that the listed assessment and stated plan reflect my best clinical judgment today based on the combination of historical information, prior notes, and today's exam/ interactions. When time spent is documented, it refers only to time spent today by the signer, or if indicated, combined time spent today by collaborating physician/nurse practitioner. Maribel Dumont Jul 10, 2017 12:29
--- NOTE | 2017-07-10 15:05 | EKG ---
Date Performed: 07/10/2017 Time Performed: 02:10:33 PTAGE: 89 years EKG: SINUS TACHYCARDIA, POSSIBLE ATRIAL FLUTTER LOW QRS VOLTAGE IN PRECORDIAL LEADS ABNORMAL RHY THM ECG INTERPRETATION BASED ON A DEFAULT AGE OF 42 YEARS NO PREVIOUS TRACING DOCTOR: Nikunj Guerrero Interpretating Date/Time 07/10/2017 15:05:30
--- NOTE | 2017-07-10 22:47 | MB ---
cc: UNA TOWNSEND DATE OF CONSULTATION 07/10/17 REASON FOR CONSULTATION Mental status change. HISTORY OF PRESENT ILLNESS Ms. 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 She is admitted now with alteration in mental status. She had shortness of breath, became tachycardiac, respiratory rate in the 30s. Her O2 sat was in the mid 90s on room air. She decompensated in the ER, was intubated. There has been no seizure activity noted. PAST MEDICAL HISTORY History of lung adenocarcinoma with metastasis to the brain and abdomen. Coronary artery disease, hyperlipidemia, radiation therapy. Hypertension, leptomeningeal intracranial metastatic disease, abdominal aortic aneurysm. MEDICATIONS Current medications are: 1. Albuterol nebulizer. 2. Piperacillin. 3. Protonix. 4. Solu-Medrol 40 milligrams IV q. 8 hours. 5. Propofol. NEUROLOGIC EXAMINATION VITAL SIGNS: Blood pressure is 100/68, pulse 110, respirations 16, temperature 100.2 degrees. NEURO: Higher cortical functions, she is sedated, nonresponsive. Cranial nerves, the pupils are 2 mm, symmetrical and reactive. Neck is supple with no meningismus. On motor exam she has no spontaneous limb movement. Reflexes are symmetric. IMAGING STUDIES CT of the brain focal series of increased density in the deep white matter tracts in the right, possible hemorrhagic lytic lesion left frontal bone concerning for metastatic disease. Abdominopelvic CT metastatic disease in the liver, inferior spleen, left adrenal, abdominal aortic aneurysm measuring 3 cm. Abnormality of left kidney. She had a CT angiogram of the chest, no evidence of PE. There is bilateral opacities and lung consolidation. Large right pleural effusion. Probable malignancy of the right hilum. LABORATORY DATA The white count is 10,600, hemoglobin 10.2, hematocrit 31%, platelet count is 27,000, PT 17.8, INR 1.6, APTT 28.6. Sodium is 139, potassium 3.4, chloride 106, Co2 is 22.9. BUN is 33, creatinine 1.57, GFR is 28. IMPRESSION Mental status change, rule out effects of metastatic tumor, rule out focal seizure. RECOMMENDATIONS MRI brain, EEG. MD ELIZABETH Daniels /8:48 PM /10:29 PM
[2017-07-10] MEDS ORDERED: ACETAMINOPHEN 650 MG/20.3 ML UDC OG-TUBE PRN (23:30)
[2017-07-11] VITALS (18 sets, daily range): BP systolic 104–116; BP diastolic 70–78; PULSE 104–115; RESP 12–25; TEMP 98.5–100; O2SAT 97–100
[2017-07-11] MEDS: DILTIAZEM INJ 125 MG in SODIUM CHLORIDE 0.9% INJ 100 ML IV SCH ×3 (01:11→20:05)
[2017-07-11] MEDS: CHLORHEXIDINE GLUCONATE 2 % 1 PACK (2 CLOTHS) TOP SCH (04:00)
[2017-07-11] MEDS: RESP: ALBUTEROL 2.5 MG/IPRATROPIUM 0.5 MG NEB (SCH) NEB ×4 (04:05→21:37)
[2017-07-11] MEDS: PROPOFOL 1000 MG/100 ML INJ 100 ML IV SCH ×3 (04:12→21:46)
[2017-07-11] MEDS: INSULIN ASPART SUPPLEMENTAL SCALE SQ SCH ×3 (04:12→18:00)
[2017-07-11] MEDS: PIPERACIL-TAZO 3.375 GM PREMIX 50 ML IV SCH ×4 (04:12→20:05)
--- NOTE | 2017-07-11 06:13 | RADRPT ---
EXAM DATE/TIME: 07/11/2017 04:41 [facility] COMPARISON: CHEST SINGLE AP, July 10, 2017, 2:19. INDICATIONS : Shortness of breath, possible pulmonary disease. MEDICAL HISTORY : Carcinoma, lung. Liver Ca SURGICAL HISTORY : None. ENCOUNTER: Subsequent ACUITY: 2 days PAIN SCORE: Non-responsive. LOCATION: Bilateral chest FINDINGS: ET tube well above the simi. Gastric tube traverses the [id number]. Interval development of co nsolidation in the left lower lung with loss of delineation of the medial half of left hemidiaphragm. Persistent hazy opacity in the right hemithorax with increased opacity in the costophrenic angle re gions suggesting enlarging right pleural effusion. CONCLUSION: There is new left lower lobe consolidation and enlarging right pleural effusion. Ralph Jin MD on July 11, 2017 at 6:11 Board Certified Radiologist. This report was verified electronically.
[2017-07-11 06:14] LABS: BASOPHIL % 0.5 % (0.0-2.0); EOSINOPHIL % 0.1 % (0.0-4.0); HEMATOCRIT 23.8 % (35.0-46.0); LYMPH % 14.3 % (9.0-44.0); MEAN CELL VOLUME 93.3 FL (80.0-100.0); MEAN CORPUSCULAR HEMOGLOBIN 31.5 PG (27.0-34.0); MEAN CORPUSCULAR HGB CONC 33.7 % (32.0-36.0); MONO % 12.4 % (0.0-8.0); NEUT % 72.7 % (16.0-70.0); PLATELET COUNT 43 TH/MM3 (150-450); RED BLOOD COUNT 2.56 MIL/MM3 (4.00-5.30); RED CELL DISTRIBUTION WIDTH 23.1 % (11.6-17.2); WHITE BLOOD COUNT 6.9 TH/MM3 (4.0-11.0)
[2017-07-11 06:18] LABS: HEMO FLAGS AUTO DIFF
[2017-07-11] MEDS: SODIUM CHLOR 0.9% 1000 ML INJ 1,000 ML IV SCH ×2 (06:53→20:06)
[2017-07-11 07:04] LABS: ALKALINE PHOSPHATASE 118 U/L (45-117); ALT (GPT) 1244 U/L (10-53); ANION GAP 15 MEQ/L (5-15); AST (GOT) 2322 U/L (15-37); BICARBONATE 20.2 MEQ/L (21.0-32.0); BLOOD UREA NITROGEN 39 MG/DL (7-18); CHLORIDE 105 MEQ/L (98-107); GLOMERULAR FILTRATION RATE 33 ML/MIN (>89); MAGNESIUM 2.1 MG/DL (1.5-2.5); POTASSIUM 3.8 MEQ/L (3.5-5.1); SODIUM (NA) 140 MEQ/L (136-145); TOTAL BILIRUBIN ADULT 1.3 MG/DL (0.2-1.0)
[2017-07-11 07:31] LABS: PLATELET ESTIMATE SMEAR LOW (NORMAL); PLATELET MORPHOLOGY NORMAL (NORMAL); SCAN/DIFF AUTO DIFF CONFIRMED
[2017-07-11] MEDS: PANTOPRAZOLE SODIUM 40 MG VIAL IV SCH (09:54)
[2017-07-11] MEDS: SODIUM CHLORIDE 0.9% FLUSH 10 ML FLUSH IV FLUSH SCH ×2 (09:54→20:05)
[2017-07-11] MEDS: methylPREDNISolone SOD SUCC 40 MG/1 ML VIAL IV PUSH SCH ×2 (09:54→16:40)
[2017-07-11] MEDS: CHLORHEXIDINE 0.12% (ORAL KIT) 15 ML CUP MT SCH ×2 (09:55→20:05)
--- NOTE | 2017-07-11 10:59 | HHI.HCPN ---
Reason for visit a. To assist with evaluation and management of symptoms including: Shortness of breath and debility. b. To assist medical decision maker(s) with: better understanding of current medical conditions; weighing benefits/burdens of medical treatment options; making medical treatment decisions. . Subjective/Interval History Mrs. Kyleigh Dumas is a 56-year-old female with a medical history significant for metastatic adenocarcinoma of the lung s/p chemotherapy, immunotherapy and drained radiation. Patient with a history of thrombocytopenia , COPD, CAD s/p stent placement who presented to [facility] via [facility] on 07/10/17 for evaluation of altered mental status. Upon ED arrival, patient was found tachycardic with heart rate in the 140s and tachypneic with congested breathing. Patient was endotracheally intubated and placed on mechanical ventilation. Abdomen/pelvis CT revealing metastatic disease with multiple lesions to liver, spleen. Head CT revealing 2 focal areas of increased density suggesting hemorrhage, lytic lesion to left frontal bone concerning for metastatic disease. Palliative care has been consulted for further clarifications of goals of care given overall poor prognosis. Case has been discussed with oncology, Dr. Singh. Patient likely not to benefit from continue cancer directed therapeutic interventions given her aggressive metastatic disease. Neurology, Dr. Cortez consulted on a 1617 for evaluation of mental status changes. Recommended MRI follow-up and EEG to rule out fracture of metastatic tumor, focal seizure. Patient seen in ICU, she remains endotracheally intubated on mechanical ventilation. Sedated on propofol. Ongoing Cardizem drip. Patient remains tachycardic with heart rate in the 110s. Unresponsive to verbal or tactile stimuli. FiO2 45%, chest x-ray this morning revealing new left lower lobe consolidation an enlarging right pleural effusion. Laboratory workup today revealing WBC 6.9, Hgb 8.0 from 10.2 yesterday and platelet count 43 from 27 yesterday s/p transfusion of FFP's and platelets. Max temperature 101.7, stable hemodynamically. Lactic acid elevated at 4.2. Case discussed with Dr. Calle and Lex COOPER. Bedside conversation with cousin/HCP Dariana Faulkner. Medical update provided. Dariana tells me that patient's daughter Henny was gently explained of patient 's poor prognosis. Family plans to withdrawal tomorrow 07/12/17 after family meeting. Patient's best friend Katya who resides in [place] will be attending family meeting. . Family/friend interactions See interval note. . Advance Directives Living Will: Never completed Health Care Surrogate: Never completed Durable Power of Cook Seafood: Never completed Advance Directive Specifics Health Care Surrogate(s): [place], healthcare proxy decision maker falls to patient's only daughter. However, adult daughter with cognitive deficits. Both the patient's parents or siblings are . Patient has 4 cousins who are alive. 3 declined to participate in medical decision-making. Therefore, healthcare proxy decision-making falls to patient's cousin Dariana Pack. . Significant change in goals: No code. DNR/DNI. Likely to withdrawal from life support. . Objective Vital Signs Date Time Temp Pulse Resp B/P Pulse Ox O2 Delivery O2 Flow Rate FiO2 07/11/17 08:43 97 45 07/11/17 08:00 108 07/11/17 08:00 45 07/11/17 06:00 109 07/11/17 04:00 100.9 110 23 105/73 99 07/11/17 04:00 110 07/11/17 04:00 45 07/11/17 02:00 111 07/11/17 01:22 100 50 07/11/17 00:00 101.7 112 25 104/72 100 07/11/17 00:00 50 07/11/17 00:00 112 07/10/17 22:00 114 07/10/17 21:50 100 50 07/10/17 20:00 101.5 115 31 106/70 94 07/10/17 20:00 50 07/10/17 20:00 115 07/10/17 18:56 50 07/10/17 18:00 100.2 103 22 102/67 96 07/10/17 18:00 103 07/10/17 17:00 99 100 07/10/17 16:50 100.4 108 16 104/74 98 07/10/17 16:39 100.4 108 16 110/70 95 Ventilator 07/10/17 16:31 100.4 110 16 100/68 95 Ventilator 07/10/17 16:31 100.4 110 16 100/68 95 Ventilator 07/10/17 16:16 100.4 110 16 104/70 95 Ventilator 45 07/10/17 16:00 100.4 109 16 100/68 95 Ventilator 45 8/1617 16:00 100.4 109 16 100/68 95 Ventilator 45 8/16/17 15:45 100.4 112 16 103/68 95 Ventilator 45 8/16/17 15:30 100.0 110 16 112/72 100 Ventilator 45 8/16/17 14:55 97 45 8/1617 14:05 100.0 110 16 108/73 99 Ventilator 45 816 14:00 100.0 110 16 108/73 100 Ventilator 45 8/16/17 13:46 100.0 112 16 100/69 100 Ventilator 45 8/16/17 13:30 100.0 111 16 106/73 100 Ventilator 45 8/16/17 13:30 100.0 112 16 106/73 100 Ventilator 45 8/1617 13:00 100.0 110 16 99/71 Ventilator 45 8/1617 12:45 100.0 111 16 106/71 100 Ventilator 45 8/1617 12:30 100.0 110 16 107/70 100 Ventilator 45 8 11:30 99.7 110 16 107/75 100 Ventilator 45 Physical Exam CONSTITUTIONAL/GENERAL: This is an adequately nourished patient, endotracheally intubated on mechanical ventilation. Sedated. TUBES/LINES/DRAINS: ETT, OG, PIV's, Thao catheter, bilateral soft wrist restraints. SKIN: No jaundice, rashes, or lesions. Ecchymoses on upper extremities. No wounds seen anteriorly. Skin temperature appropriate. Not diaphoretic. HEAD: Atraumatic. Normocephalic. EYES: Pupils equal and round and reactive. No scleral icterus. No injection or drainage. ENT: Hearing grossly normal. Nose without bleeding or purulent drainage. Moist oral mucosa. NECK: Trachea midline. CARDIOVASCULAR: Tachycardic, heart rate in the low 110s. Regular rate. No JVD. Peripheral pulses symmetric. RESPIRATORY/CHEST: Symmetric, unlabored respirations. Endotracheally intubated on mechanical ventilation. Coarse breath sounds bilaterally.. GASTROINTESTINAL: Abdomen soft, round, nondistended. Bowel sounds present. GENITOURINARY: Without palpable bladder distension. Thao catheter in place. MUSCULOSKELETAL: Extremities without clubbing, cyanosis, or edema. Cold bilateral lower extremities. NEUROLOGICAL: Sedated, unresponsive to verbal or tactile stimuli. PSYCHIATRIC: Unable to evaluate secondary to clinical condition. . Diagnostic Tests Laboratory Laboratory Tests Test 07/10/17 07/10/17 07/10/17 07/10/17 02:10 02:50 04:25 04:30 White Blood Count 10.6 TH/MM3 (4.0-11.0) Red Blood Count 3.30 MIL/MM3 (4.00-5.30) Hemoglobin 10.2 GM/DL (11.6-15.3) Hematocrit 31.3 % (35.0-46.0) Mean Corpuscular Volume 94.7 FL (80.0-100.0) Mean Corpuscular Hemoglobin 30.7 PG (27.0-34.0) Mean Corpuscular Hemoglobin 32.5 % Concent (32.0-36.0) Red Cell Distribution Width 23.1 % (11.6-17.2) Platelet Count 27 TH/MM3 (150-450) Mean Platelet Volume 9.6 FL (7.0-11.0) Neutrophils (%) (Auto) 62.4 % (16.0-70.0) Lymphocytes (%) (Auto) 17.5 % (9.0-44.0) Monocytes (%) (Auto) 14.8 % (0.0-8.0) Eosinophils (%) (Auto) 4.1 % (0.0-4.0) Basophils (%) (Auto) 1.2 % (0.0-2.0) Neutrophils # (Auto) 6.6 TH/MM3 (1.8-7.7) Lymphocytes # (Auto) 1.9 TH/MM3 (1.0-4.8) Monocytes # (Auto) 1.6 TH/MM3 (0-0.9) Eosinophils # (Auto) 0.4 TH/MM3 (0-0.4) Basophils # (Auto) 0.1 TH/MM3 (0-0.2) CBC Comment AUTO DIFF Differential Comment AUTO DIFF CONFIRMED Platelet Estimate LOW (NORMAL) Platelet Morphology Comment ENLARGED (NORMAL) Acanthocytes OCC (NORMAL) Keratocytes OCC (NORMAL) Prothrombin Time 17.8 SEC (9.8-11.6) Prothromb Time International 1.6 RATIO Ratio Activated Partial 28.6 SEC Thromboplast Time (24.3-30.1) Urine Color YELLOW (YELLW/STRAW) Urine Turbidity HAZY (CLEAR) Urine pH 5.5 (5.0-8.5) Urine Specific [place] 1.025 (1.002-1.035) Urine Protein 100 mg/dL (NEG-TRACE) Urine Glucose (UA) NEG mg/dL (NEG) Urine Ketones 10 mg/dL (NEG) Urine Occult Blood SMALL (NEG) Urine Nitrite NEG (NEG) Urine Bilirubin NEG (NEG) Urine Urobilinogen LESS THAN 2.0 MG/DL (LESS THAN 2.0) Urine Leukocyte Esterase NEG (NEG) Urine RBC 1 /hpf (0-3) Urine WBC 2 /hpf (0-5) Urine Squamous Epithelial 3 /hpf (0-5) Cells Urine Hyaline Casts 5 /lpf (RARE) Urine Mucus FEW /lpf (OCC) Microscopic Urinalysis Comment CULT NOT INDICATED Sodium Level 136 MEQ/L (136-145) Potassium Level 5.1 MEQ/L (3.5-5.1) Chloride Level 104 MEQ/L (98-107) Carbon Dioxide Level 18.3 MEQ/L (21.0-32.0) Anion Gap 14 MEQ/L (5-15) Blood Urea Nitrogen 33 MG/DL (7-18) Creatinine 1.45 MG/DL (0.50-1.00) Estimat Glomerular Filtration 31 ML/MIN (>89) Rate Random Glucose 146 MG/DL (74-106) Lactic Acid Level 4.2 mmol/L 3.6 mmol/L (0.4-2.0) (0.4-2.0) Calcium Level 8.7 MG/DL (8.5-10.1) Magnesium Level 2.0 MG/DL (1.5-2.5) Total Bilirubin 0.8 MG/DL (0.2-1.0) Aspartate Amino Transf 55 U/L (15-37) (AST/SGOT) Alanine Aminotransferase 21 U/L (10-53) (ALT/SGPT) Alkaline Phosphatase 149 U/L (45-117) Ammonia 26 MCMOL/L (11-32) Total Creatine Kinase 114 U/L (26-192) Creatine Kinase MB 2.3 NG/ML (0.5-3.6) Troponin I 0.11 NG/ML (0.02-0.05) C-Reactive Protein 8.88 MG/DL (0.00-0.30) B-Type Natriuretic Peptide 537 PG/ML (0-100) Total Protein 6.4 GM/DL (6.4-8.2) Albumin 2.6 GM/DL (3.4-5.0) Lipase 86 U/L (73-393) Thyroid Stimulating Hormone 1.630 uIU/ML 3rd Gen (0.358-3.740) Urine Opiates Screen NEG (NEG) Urine Barbiturates Screen NEG (NEG) Urine Amphetamines Screen NEG (NEG) Urine Benzodiazepines Screen POS (NEG) Urine Cocaine Screen NEG (NEG) Urine Cannabinoids Screen NEG (NEG) Ethyl Alcohol Level LESS THAN 3 MG/DL (0-5) Blood Gas Puncture Site RT RADIAL Blood Gas Patient Temperature 98.6 Blood Gas HCO3 15 mmol/L (22-26) Blood Gas Base Excess -9.4 mmol/L (-2-2) Blood Gas Oxygen Saturation 98 % (90-100) Arterial Blood pH 7.34 (7.380-7.420) Arterial Blood Partial 30 mmHg (38-42) Pressure CO2 Arterial Blood Partial 354 mmHG Pressure O2 (61-120) Arterial Blood Oxygen Content 13.2 Vol % (12.0-20.0) Arterial Blood 2.2 % (0-4) Carboxyhemoglobin Arterial Blood Methemoglobin 0.4 % (0-2) Blood Gas Hemoglobin 8.9 G/DL (12.0-16.0) Oxygen Delivery Device VENTILATOR Blood Gas Ventilator Setting PRVC/AC Blood Gas Inspired Oxygen 100 % Salicylates Level LESS THAN 1.7 MG/DL (2.8-20.0) Acetaminophen Level 2.8 MCG/ML (10.0-30.0) Test 07/10/17 07/10/17 07/10/17 07/10/17 07:07 09:10 10:00 15:40 Total Creatine Kinase 100 U/L 108 U/L (26-192) (26-192) Troponin I 1.47 NG/ML 1.04 NG/ML (0.02-0.05) (0.02-0.05) Sodium Level 139 MEQ/L (136-145) Potassium Level 3.4 MEQ/L (3.5-5.1) Chloride Level 106 MEQ/L (98-107) Carbon Dioxide Level 22.9 MEQ/L (21.0-32.0) Anion Gap 10 MEQ/L (5-15) Blood Urea Nitrogen 33 MG/DL (7-18) Creatinine 1.57 MG/DL (0.50-1.00) Estimat Glomerular Filtration 28 ML/MIN (>89) Rate Random Glucose 129 MG/DL (74-106) Calcium Level 7.1 MG/DL (8.5-10.1) Protein Corrected Calcium 8.0 MG/DL (8.5-10.1) Total Protein 5.4 GM/DL (6.4-8.2) Blood Type A POSITIVE Antibody Screen NEGATIVE Blood Bank Comment Lactic Acid Level 4.2 mmol/L (0.4-2.0) Test 07/10/17 07/11/17 18:00 05:34 Nasal Screen MRSA (PCR) MRSA NOT DETECTED (NOT DETECT) White Blood Count 6.9 TH/MM3 (4.0-11.0) Red Blood Count 2.56 MIL/MM3 (4.00-5.30) Hemoglobin 8.0 GM/DL (11.6-15.3) Hematocrit 23.8 % (35.0-46.0) Mean Corpuscular Volume 93.3 FL (80.0-100.0) Mean Corpuscular Hemoglobin 31.5 PG (27.0-34.0) Mean Corpuscular Hemoglobin 33.7 % Concent (32.0-36.0) Red Cell Distribution Width 23.1 % (11.6-17.2) Platelet Count 43 TH/MM3 (150-450) Mean Platelet Volume 8.2 FL (7.0-11.0) Neutrophils (%) (Auto) 72.7 % (16.0-70.0) Lymphocytes (%) (Auto) 14.3 % (9.0-44.0) Monocytes (%) (Auto) 12.4 % (0.0-8.0) Eosinophils (%) (Auto) 0.1 % (0.0-4.0) Basophils (%) (Auto) 0.5 % (0.0-2.0) Neutrophils # (Auto) 5.0 TH/MM3 (1.8-7.7) Lymphocytes # (Auto) 1.0 TH/MM3 (1.0-4.8) Monocytes # (Auto) 0.9 TH/MM3 (0-0.9) Eosinophils # (Auto) 0.0 TH/MM3 (0-0.4) Basophils # (Auto) 0.0 TH/MM3 (0-0.2) CBC Comment AUTO DIFF Differential Comment AUTO DIFF CONFIRMED Platelet Estimate LOW (NORMAL) Platelet Morphology Comment NORMAL (NORMAL) Sodium Level 140 MEQ/L (136-145) Potassium Level 3.8 MEQ/L (3.5-5.1) Chloride Level 105 MEQ/L (98-107) Carbon Dioxide Level 20.2 MEQ/L (21.0-32.0) Anion Gap 15 MEQ/L (5-15) Blood Urea Nitrogen 39 MG/DL (7-18) Creatinine 1.62 MG/DL (0.50-1.00) Estimat Glomerular Filtration 33 ML/MIN (>89) Rate Random Glucose 141 MG/DL (74-106) Calcium Level 7.6 MG/DL (8.5-10.1) Phosphorus Level 4.8 MG/DL (2.5-4.9) Magnesium Level 2.1 MG/DL (1.5-2.5) Total Bilirubin 1.3 MG/DL (0.2-1.0) Aspartate Amino Transf 2322 U/L (AST/SGOT) (15-37) Alanine Aminotransferase 1244 U/L (ALT/SGPT) (10-53) Alkaline Phosphatase 118 U/L (45-117) Total Protein 5.9 GM/DL (6.4-8.2) Albumin 2.4 GM/DL (3.4-5.0) Result Diagram: 07/11/17 0534 07/11/17 0534 Microbiology Microbiology Date/Time Procedure Status Source Growth 07/10/17 02:10 Aerobic Blood Culture Received Blood Peripheral Pending 07/10/17 02:10 Anaerobic Blood Culture Received Blood Peripheral Pending 07/10/17 02:15 Aerobic Blood Culture Received Blood Peripheral Pending 07/10/17 02:15 Anaerobic Blood Culture Received Blood Peripheral Pending Imaging Last 24 hours Impressions Chest X-Ray 07/11/17 0600 Signed Impressions: Service Date/Time: June 04:41 - CONCLUSION: There is new left lower lobe consolidation and enlarging right pleural effusion. Ralph Jin MD Procedures * 07/10/17 -endotracheal intubation . Assessment and Plan Disease Oriented Problem List: (1) Acute respiratory failure requiring reintubation (2) Metastatic lung cancer (metastasis from lung to other site) (3) Thrombocytopenia (4) Pleural effusion Symptom Scale: (1) Shortness of breath 0-10 Scale: Unable to quantify Comment: Intubated, mechanical ventilation. (2) Debility 0-10 Scale: Unable to quantify Comment: Progressive. Worsened during the past 2 months. Pertinent Non-Medical Issues Psychosocial: Patient originally from [place], she is an [place] citizen. , 20 years ago. One daughter, Henny who is 26 years old with special -Asperger's and bipolar. Daughter is also reported with cognitive deficits. Living independently at home with daughter. 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 Both parents are , brother is . Spiritual: No confucianist affiliations. Legal: No advance directives completed. Ethical issues impacting care: No advance directives. Patient unable to participating in medical decision-making given her clinical condition. Only adult daughter is reported with cognitive deficits. Pending contact with additional family members. . Important Contacts HCP: cousin Dariana Faulkner Patient's daughter Henny Tirado Cousin Tyler Hunt Cousin Eloisa Sanders Cousin Arturo Gilbert Friend Eva Josey & Friend Katya Rey & . . Prognosis Mrs. Kyleigh Dumas is a 56-year-old female with a medical history significant for metastatic adenocarcinoma of the lung s/p chemotherapy, immunotherapy and drained radiation. Patient with a history of thrombocytopenia , COPD, CAD s/p stent placement who presented to [facility] via [facility] on 07/10/17 for evaluation of altered mental status. Patient was intubated and placed on mechanical ventilation given worsening respiratory failure. Overall prognosis is very poor given progressive metastatic disease, acute events, multiple comorbidities and profound physical deconditioning. . Code Status: No Code Plan * CODE STATUS: No code. Cousin Dariana Faulkner acting as HCP electing to change code status from full code to NO code. * HEALTHCARE DECISION-MAKING: Patient unable to participating in medical decision-making secondary to clinical condition, unresponsive on ventilator support. No advance directives completed. Patient's is , both parents and brother are . As per [place] statute, healthcare proxy decision maker falls to patient's only daughter Henny. However, adult daughter with cognitive deficits, Asperger's syndrome and bipolar: unable to serve in this capacity given her condition, daughter was dependent on patient for care. Patient's only family are her 4 cousins Dariana Faulkner, Tyler Hunt, Arturo Hunt and Eloisa Sanders. Palliative care spoke with all 4 cousins; Arturo Hunt , Eloisa Sanders and Tyler Hunt DECLINED to participating in medical decision- making. Therefore, as per [place] statue, healthcare proxy decision-making falls to patient's cousin Dariana Faulkner. * Patient has 2 friends who have been very involved in her care, Eva and Katya. * GOALS OF CARE: HCP cousin Dariana Faulkner, with support of patient's addl 3 cousins (see above) and pt's 2 best friends Eva and Katya electing to transition patient to comfort-directed care/compassionate withdrawal of life support given patient's poor prognosis and known wishes. Compassionate withdrawal likely to occur this Thursday 07/12 once patient's adult daughter Henny who has cognitive deficits, visits patient and is giving the opportunity to ask questions and receive the emotional support needed. Family meeting to include daughter Henny scheduled for this Thursday 07/12 in the afternoon. Palliative care to provide emotional support and active listening, palliative care oncology social work and rn discharge will be present for additional support. Hospice philosophy and benefits introduce to family, patient's daughter likely to benefit from hospice grieving support and follow-ups. * SYMPTOMS: = Shortness of breath, secondary to acute respiratory failure. Remains intratracheally intubated on mechanical ventilation. = Debility, progressive. Worsened during the past 2 months. * Case discussed with Dr. Calle and bedside RN Elizabeth boo. * Spiritual services offered and accepted. Spoke directly with rn discharge Sergey for referral. * Ongoing emotional support and active listening provided. * Palliative care contact information has been provided to patient's family and friends. * Palliative care will continue to follow-up for further clarifications of goals of care and to assist in identification of proxy decision maker. . Time Spent Total Floor Time (mins): 48 (Total time to include review medical records, physical exam, goals of care conversation with LEEANN Westbrook, telephone conversation with patient's best friend Katya and case discussion with Dr. Calle and bedside RN Santos.) >50% Counseling/Coord of Care: Yes Attestation To help prompt me to consider important information that might be impacting today's encounter and assessment, information from prior notes written by myself or my colleagues may have been "brought forward" into today's note. My signature on this note, however, is an attestation that I personally performed the exam, history, and/or decision-making noted today, and, unless otherwise indicated, the interactions with patient, family, and staff as well as the review of records all occurred today. I also attest that the listed assessment and stated plan reflect my best clinical judgment today based on the combination of historical information, prior notes, and today's exam/ interactions. When time spent is documented, it refers only to time spent today by the signer, or if indicated, combined time spent today by collaborating physician/nurse practitioner. Maribel Dumont Jul 11, 2017 10:59
--- NOTE | 2017-07-11 15:03 | HHI.CCPN ---
Subjective Remarks/Hospital Course 56-year-old female with a history of metastatic adenocarcinoma. Lung with brain metastases as well as intrathoracic and intra-abdominal metastases status post previous chemotherapy being followed by Dr. Singh for oncology. She also has a history of DVT and pulmonary embolism however is not a candidate for anticoagulation because of thrombocytopenia and brain metastases. Patient lives with her mentally adult daughter. She reportedly developed altered mental status a day prior to her presentation. Her daughter called EMS when she developed shortness of breath. Patient was tachycardic with respiratory rate in the 30s O2 sat mid 90s on room air however subsequently decompensated and following arrival in the ER was intubated and placed on mechanical ventilation. Prior to intubation patient attempted to follow commands however had unintelligible speech. Patient's name is Kyleigh Beth Subjective: 07/11: The patient's heart rate remains [id number] currently on Cardizem infusion the patient continues on minimal sedation with Diprivan infusion. MRI planned to be performed today results pending. Palliative care following tentative plan for comfort care measures with ventilator withdrawal schedule for 07/12/17. Objective Vital Signs Date Time Temp Pulse Resp B/P Pulse Ox O2 Delivery O2 Flow Rate FiO2 07/11/17 13:33 97 45 07/11/17 12:00 98.9 110 24 116/77 07/10/17 16:39 Ventilator Intake and Output 07/10/17 07/10/17 07/11/17 08:00 16:00 00:00 Intake Total 723 ml 714 ml Output Total 675 ml 1600 ml Balance -675 ml 723 ml -886 ml Result Diagram: 07/11/17 0534 07/11/17 0534 Imaging Last Impressions Chest X-Ray 07/11/17 0600 Signed Impressions: Service Date/Time: June 04:41 - CONCLUSION: There is new left lower lobe consolidation and enlarging right pleural effusion. Ralph Jin MD CT Angiography 07/10/17 0411 Signed Impressions: Service Date/Time: Monday, July 10, 2017 05:21 - CONCLUSION: 1. The study is negative for pulmonary embolism. 2. Diffuse bilateral opacities and consolidation in the lungs. 3. Large right pleural effusion and significant adenopathy in the middle mediastinum and right hilum, highly suspicious for malignancy. Ralph Jin MD Head CT 07/10/17 0203 Signed Impressions: Service Date/Time: Monday, July 10, 2017 05:17 - CONCLUSION: 2 focal areas of increased density in the deep white matter tracts on the right possible hemorrhage. Lytic lesion left frontal bone concerning for metastatic disease. Zeferino Menendez MD Abdomen/Pelvis CT 07/10/17 0000 Signed Impressions: Service Date/Time: Monday, July 10, 2017 05:21 - CONCLUSION: 1. Findings suggest metastatic disease with multiple low density lesions in the liver, a solitary low density lesion in the inferior spleen, and probable left adrenal mass. 2. 2 abdominal aortic aneurysms, both measuring 3 cm and both being saccular in configuration. 3. Absent enhancement in the inferior left kidney suggesting either an infiltrative process or vascular compromise. 4. Multiple abnormalities of the chest, described on CT pulmonary angiogram. Ralph Jin MD Objective Remarks GENERAL: Critically ill-appearing , older than stated age female intubated and sedated. SKIN: Warm and dry. HEAD: Atraumatic. Normocephalic. EYES: Pupils equal and round. No scleral icterus. No injection or drainage. ENT: No nasal bleeding or discharge. Mucous membranes pink and moist. Oral tracheal intubation NECK: Trachea midline. No JVD. CARDIOVASCULAR: Sinus tachycardia, regular rhythm. RESPIRATORY: No accessory muscle use mechanical ventilation. Clear to auscultation. Breath sounds equal bilaterally. GASTROINTESTINAL: Abdomen soft, non-tender, nondistended. No guarding. MUSCULOSKELETAL: Extremities without clubbing, cyanosis, or edema. No obvious deformities. NEUROLOGICAL: GCS 3T A/P Assessment and Plan 56-year-old female with: Encephalopathy Acute respiratory failure on mechanical ventilation Metastatic lung cancer with brain metastases, intrathoracic metastases, intra- abdominal metastases Thrombocytopenia CAD History of pulmonary embolism History of DVT Hyperlipidemia history of hypertension Plan: Neuro: Sedation with propofol, follow up head CT. Encephalopathy likely from metastatic brain disease however need to rule out intracranial hemorrhage. 07/11 MRI [id number] results Cardiovascular: Continue IV hydration normal saline at 75 cc/hour. History of PE noted. Cannot be anticoagulated due to brain metastases. Pulmonary: Continue mechanical ventilation, vent bundle, bronchodilators. 07/10 CT pulmonary angiogram negative for PE. She has a history of pulmonary emboli however per Dr. Singh not a good candidate for anticoagulation at this time. GI/liver: Keep nothing by mouth for now. 07/10 CT abdomen pelvis -metastatic disease liver spleen and possibly left adrenal mass ID: Follow-up cultures. Empiric antibiotic coverage with IV Zosyn. Renal/: IV hydration, strict intake output, monitor and replete electrolytes, follow BUN/creatinine. Endocrine: Sliding scale insulin for glycemic control. Hemonc: Dr. Singh followingthe patient for her metastatic lung cancer as well as thrombocytopenia. Prophylaxis: PPI/SCDs. Awaiting head CT, CT pulmonary angiogram and CT abdomen pelvis at the time of this dictation which will be reviewed when available. Condition critical. Palliative care service following tentative plan for comfort care measures with ventilator withdrawal in the near future. This patient remains critically ill with one or more organ systems which are or may become a threat to life. I have spent in excess of 30 minutes discontinuously in the care and management of this patient. This time is exclusive of procedures, and includes, but is not limited to, evaluation of the patient, review of the medical record, discussions with family, consultants, nursing staff, or respiratory therapy, and documentation in the medical record. Physician Gloria Espinoza MD Jul 11, 2017 15:03
--- NOTE | 2017-07-11 15:15 | RADRPT ---
EXAM DATE/TIME: 07/11/2017 14:25 [facility] COMPARISON: CT BRAIN W/O CONTRAST, July 10, 2017, 5:17. INDICATIONS : Metastatic disease. Lung cancer. MEDICAL HISTORY : Carcinoma, lung. Hypertension. Aneurysm, abdominal. SURGICAL HISTORY : Tonsillectomy. ENCOUNTER: Subsequent ACUITY: 2 day PAIN SCORE: Nonresponsive. LOCATION: head. TECHNIQUE: Multiplanar, multisequence MRI of the brain was performed without contrast. FINDINGS: The diffusion restriction images demonstrate a large are of abnormal restricted diffusion involving m ost of the left MCA vascular distribution. In addition, there is abnormal signal extending into the c audate nucleus on the left. Findings would be most consistent with a large area of acute/subacute cor tical infarct. The T2 and SWI images demonstrate 2 small lesions in the white matter of the right parietal cortex. T here is clearly hemorrhage within these areas. These areas are concerning for small foci of metastati c disease. No contrast was administered which limits evaluation of these. Inversion recovery images demonstrate scattered areas of increased T2 signal in the white matter most consistent with moderate microvascular ischemic demyelinative change. No significant extra-axial fluid collections are identified. The appearance of the posterior fossa is unremarkable. Visualized portion of sinus and orbit are intact. CONCLUSION: 1. Large area of acute/subacute cortical infarct involving the left MCA distribution. 2. There are 2 small lesions evident in the white matter of the right parietal cortex. There is hemor rhage associated with these on the SWI images. These may simply represent punctate areas of hemorrhag e secondary small cavernous angiomas; however, they could also represent hemorrhage in small metastat ic foci. Post contrast imaging would be of benefit for further assessment. Akbar Templeton MD on July 11, 2017 at 15:05 Board Certified Radiologist. This report was verified electronically.
--- NOTE | 2017-07-11 19:04 | ECHRPT ---
Indication: ?LV FUNCTION CONCLUSIONS Normal left ventricular size. Wall thickness is normal. The left ventricular systolic function is severely reduced with an estimated ejection fraction less than 20%. There is diffuse global hypokinesis with distinct regional wall motion abnormalities. Doppler parameters are consistent with impaired left ventricular relaxtion (grade 1 diastolic dysfun ction). The left atrial size is moderately dilated. The right atrial size is mildly dilated. The interatrial septum not well visualized. There appears to be a mild to moderate size mobile vegetation on the anterior leaflet of the mitral valve. The posterior leaflet just appears to be a bit thickened. The vegetation is flipping in and out of the atrium. There is a moderate to severe posterior jet of mitral regurgitation. There is moderate tricuspid regurgitation. There is estimated mild pulmonary hypertension present (range 40-50 mmHg). The inferior vena cava (IVC) is normal in size. There is less than 50% respiratory change in dimension of the inferior vena cava (abnormal). BP: 107 / 82 HR: 129 Rhythm: Sinus MEASUREMENTS (Male / Female) Normal Values Technical Quality:Fair 2D ECHO LV Diastolic Diameter PLAX 5.5 cm 4.2 - 5.9 / 3.9 - 5.3 cm LV Systolic Diameter PLAX 5.2 cm IVS Diastolic Thickness 0.8 cm 0.6 - 1.0 / 0.6 - 0.9 cm LVPW Diastolic Thickness 0.8 cm 0.6 - 1.0 / 0.6 - 0.9 cm LV Relative Wall Thickness 0.3 LVOT Diameter 1.8 cm Aortic Root Diameter 2.9 cm LA Systolic Diameter LX 3.4 cm 3.0 - 4.0 / 2.7 - 3.8 cm M-MODE AV Cusp Separation MM 2.1 cm DOPPLER AV Peak Velocity 112.0 cm/s AV Peak Gradient 5.0 mmHg AV Mean Gradient 3.0 mmHg AV Velocity Time Integral 16.4 cm LVOT Peak Velocity 86.0 cm/s LVOT Peak Gradient 3.0 mmHg LVOT Velocity Time Integral 10.4 cm AV Area Cont Eq vti 1.6 cm AV Area Cont Eq pk 2.0 cm Mitral E Point Velocity 123.0 cm/s Mitral A Point Velocity 139.0 cm/s Mitral E to A Ratio 0.9 TR Peak Velocity 282.0 cm/s TR Peak Gradient 31.8 mmHg PV Peak Velocity 52.6 cm/s PV Peak Gradient 1.1 mmHg FINDINGS LEFT VENTRICLE Normal left ventricular size. Wall thickness is normal. The left ventricular systolic function is severely reduced with an estimated ejection fraction less than 20%. There is diffuse global hypokinesis with distinct regional wall motion abnormalities. Doppler parameters are consistent with impaired left ventricular relaxtion (grade 1 diastolic dysfun ction). RIGHT VENTRICLE Normal right ventricular size and systolic function. LEFT ATRIUM The left atrial size is moderately dilated. RIGHT ATRIUM The right atrial size is mildly dilated. ATRIAL SEPTUM The interatrial septum not well visualized. AORTA The aortic root and proximal ascending aorta are normal in size on limited imaging. MITRAL VALVE There appears to be a mild to moderate size mobile vegetation on the anterior leaflet of the mitral valve. The posterior leaflet just appears to be a bit thickened. The vegetation is flipping in and out of the atrium. There is a moderate to severe posterior jet of mitral regurgitation. AORTIC VALVE Trileaflet aortic valve. No aortic valve stenosis or regurgitation. TRICUSPID VALVE Structurally normal tricuspid valve. There is moderate tricuspid regurgitation. There is estimated mild pulmonary hypertension present (range 40-50 mmHg). PULMONARY VALVE No pulmonary valve regurgitation or stenosis. VESSELS The inferior vena cava (IVC) is normal in size. There is less than 50% respiratory change in dimension of the inferior vena cava (abnormal). PERICARDIUM No pericardial effusion. Hua Nathan MD (Electronically Signed) Final Date:11 July 2017 19:02
--- NOTE | 2017-07-11 20:36 | PD.ONC.PN ---
Subjective Subjective Remarks Pt examined, vital signs, medications, labs, medications and imaging studies reviewed. Wharf Labou[employer] notes reviewed. The patient remains intubated and sedated. Her daughter is at bedside, one of the patient's friends is also at bedside (whom I had previously met at an out patient visit). There have been no acute events overnight. MRI brain results reviewed; punctate hemorrhages in the brain matter suspected. Objective Data Date Time Temp Pulse Resp B/P Pulse Ox O2 Delivery O2 Flow Rate FiO2 07/11/17 18:00 110 07/11/17 16:32 97 45 07/11/17 16:00 45 07/11/17 16:00 98.5 104 23 97 07/11/17 16:00 104 07/11/17 14:00 111 07/11/17 13:33 97 45 07/11/17 12:00 45 07/11/17 12:00 98.9 110 24 116/77 98 07/11/17 12:00 108 07/11/17 11:33 97 45 07/11/17 08:43 97 45 07/11/17 08:00 108 07/11/17 08:00 45 07/11/17 08:00 100.0 109 21 112/78 98 07/11/17 06:00 109 07/11/17 04:00 100.9 110 23 105/73 99 07/11/17 04:00 110 07/11/17 04:00 45 07/11/17 02:00 111 07/11/17 01:22 100 50 07/11/17 00:00 101.7 112 25 104/72 100 07/11/17 00:00 50 07/11/17 00:00 112 07/10/17 22:00 114 07/10/17 21:50 100 50 07/11/17 07/11/17 07/11/17 07:00 15:00 23:00 Intake Total 780 ml 861 ml Output Total 250 ml 250 ml Balance 530 ml 611 ml Result Diagram: 07/11/17 0534 07/11/17 0534 Laboratory Results Laboratory Tests Test 07/11/17 05:34 White Blood Count 6.9 TH/MM3 Red Blood Count 2.56 MIL/MM3 Hemoglobin 8.0 GM/DL Hematocrit 23.8 % Mean Corpuscular Volume 93.3 FL Mean Corpuscular Hemoglobin 31.5 PG Mean Corpuscular Hemoglobin 33.7 % Concent Red Cell Distribution Width 23.1 % Platelet Count 43 TH/MM3 Mean Platelet Volume 8.2 FL Neutrophils (%) (Auto) 72.7 % Lymphocytes (%) (Auto) 14.3 % Monocytes (%) (Auto) 12.4 % Eosinophils (%) (Auto) 0.1 % Basophils (%) (Auto) 0.5 % Neutrophils # (Auto) 5.0 TH/MM3 Lymphocytes # (Auto) 1.0 TH/MM3 Monocytes # (Auto) 0.9 TH/MM3 Eosinophils # (Auto) 0.0 TH/MM3 Basophils # (Auto) 0.0 TH/MM3 CBC Comment AUTO DIFF Differential Comment AUTO DIFF CONFIRMED Platelet Estimate LOW Platelet Morphology Comment NORMAL Sodium Level 140 MEQ/L Potassium Level 3.8 MEQ/L Chloride Level 105 MEQ/L Carbon Dioxide Level 20.2 MEQ/L Anion Gap 15 MEQ/L Blood Urea Nitrogen 39 MG/DL Creatinine 1.62 MG/DL Estimat Glomerular Filtration 33 ML/MIN Rate Random Glucose 141 MG/DL Calcium Level 7.6 MG/DL Phosphorus Level 4.8 MG/DL Magnesium Level 2.1 MG/DL Total Bilirubin 1.3 MG/DL Aspartate Amino Transf 2322 U/L (AST/SGOT) Alanine Aminotransferase 1244 U/L (ALT/SGPT) Alkaline Phosphatase 118 U/L Total Protein 5.9 GM/DL Albumin 2.4 GM/DL Culture Results Microbiology Date/Time Procedure Status Source Growth 07/10/17 02:10 Aerobic Blood Culture - Preliminary Resulted Blood Peripheral NO GROWTH IN 1 DAY 07/10/17 02:10 Anaerobic Blood Culture - Preliminary Resulted Blood Peripheral NO GROWTH IN 1 DAY 07/10/17 02:15 Aerobic Blood Culture - Preliminary Resulted Blood Peripheral NO GROWTH IN 1 DAY 07/10/17 02:15 Anaerobic Blood Culture - Final Resulted Bacillus Species Not Anthracis Imaging Studies Last 24 hours Impressions Chest X-Ray 07/11/17 0600 Signed Impressions: Service Date/Time: June 04:41 - CONCLUSION: There is new left lower lobe consolidation and enlarging right pleural effusion. Ralph Jin MD Brain MRI 07/11/17 0000 Signed Impressions: Service Date/Time: June 14:25 - CONCLUSION: 1. Large area of acute/subacute cortical infarct involving the left MCA distribution. 2. There are 2 small lesions evident in the white matter of the right parietal cortex. There is hemorrhage associated with these on the SWI images. These may simply represent punctate areas of hemorrhage secondary small cavernous angiomas; however, they could also represent hemorrhage in small metastatic foci. Post contrast imaging would be of benefit for further assessment. Akbar Templeton MD Administered Medications Medications (Trade) Dose Ordered Sig/Nilo Route PRN Reason Start Time Stop Time Status Last Admin Dose Admin Propofol 100 ml @ 0 mls/hr TITRATE IV 07/10/17 02:15 07/11/17 09:55 Diltiazem HCl 125 mg/Sodium Chloride 125 ml @ 0 mls/hr TITRATE IV 07/10/17 03:45 07/11/17 20:05 Sodium Chloride (NS 1000 ml Inj) 1,000 ml @ 75 mls/hr [id number] IV 07/10/17 04:13 07/11/17 20:06 Sodium Chloride (NS Flush) 2 ml BID IV FLUSH 07/10/17 09:00 07/11/17 20:05 Chlorhexidine Gluconate (Peridex 0.12% Liq) 15 ml BID@08,20 MT 07/10/17 08:00 07/11/17 20:05 Pantoprazole Sodium (Protonix Inj) 40 mg DAILY IV 07/10/17 09:00 07/11/17 09:54 Chlorhexidine Gluconate (Chlorhexidine 2% Cloth) 3 pack Taper DAILY@04 TOP 07/11/17 04:00 07/07/18 03:59 07/11/17 04:00 Insulin Aspart 1 1 Q6HR SQ 07/10/17 06:00 07/11/17 12:17 Propofol 100 ml @ 0 mls/hr TITRATE IV 07/10/17 04:15 07/11/17 04:12 Piperacillin Sod/ Tazobactam Sod (Zosyn 3.375 Gm Premix) 50 ml @ 100 mls/hr Q6H IV 07/10/17 10:00 07/11/17 20:05 Methylprednisolone Sodium Succinate (SoluMEDROL INJ) 40 mg Q8H IV PUSH 07/10/17 09:00 07/11/17 16:40 Acetaminophen (Tylenol 650 Mg/ 20 ml Liq) 650 mg Q6H PRN OG-TUBE TEMP > 101.5 07/10/17 23:30 07/10/17 23:36 Objective Remarks GENERAL PHYSICAL APPEARANCE: Ms. Mott is a middle-aged female, she appears to be critically ill at this time. She is laying in bed. She is intubated, ventilated, sedated. She appears to be pale. HEENT: Head is atraumatic, normocephalic, pupils are reactive. Oral exam, ET tube is in place. RESPIRATORY EXAM: Good air movement bilaterally with good inspiratory and expiratory sounds. Prolonged expiratory phase. CARDIOVASCULAR: Tachycardiac, regular S1-S2. No obvious murmurs, rubs or gallops. ABDOMEN: Protuberant belly, soft and nontender, nondistended, no palpable organ enlargement. EXTREMITIES: No pretibial edema. No calf tenderness. CONTINUOUS IMPROVEMENT COACH: No spontaneous or purposeful movements. She is sedated and paralyzed. She has decreased muscle mass and tone. Assessment/Plan Assessment Ms. Kyleigh Mott is a 56-year-old lady, She was found to have severe difficulty breathing at home and altered mental status. Shortly after presentation to the ER on 07/10, she was intubated. She is presently sedated. This patient is well-known to me, I have been caring for her for the past two months. She was diagnosed in April of 2017 with metastatic adenocarcinoma of the lung, her disease at the time of presentation was metastatic to liver, spleen, adrenal glands as well as with metastatic disease to the leptomeninges as well as to the cranium. Her disease is positive for PDL-1 and based on that , she was initiated on palliative immunotherapy as first line treatment with Keytruda. She had received, I believe, two infusions of this thus far. In addition to this, the patient had received palliative radiation for her leptomeningeal disease as well as her metastatic disease to the calvarium. Additional hematologic issues include pulmonary emboli, lower extremity deep venous thromboses and severe thrombocytopenia all of which were present at the time of diagnosis. The patient unfortunately had been failing to thrive as an outpatient and seemingly was quite frail to the point where we had discussed in the past the goals of care, as well as consideration of palliative interventions and Hospice. She has elected in the past to pursue palliative systemic therapy to help prolong her survival and to help improve disease related symptoms. She now comes in with the above-noted issues, specifically respiratory failure and suspected intracranial bleeding. I have been asked to see her to help define additional goals of care. Plan 1. Metastatic adenocarcinoma of the lung: Goals of care are palliative, it is hard to see a scenario where she will have recovered sufficiently to undergo additional therapy. I agree with comfort oriented care. 2. Thrombocytopenia: Improved with PLT transfusion and corticosteroids. 3. I spoke to her daughter and friend at bedside today. I am was informed of plans to palliatively extubate her tomorrow. The patient's cousin is the health care proxy. Paco Singh MD Jul 11, 2017 20:36
[2017-07-12] VITALS (16 sets, daily range): BP systolic 91–113; BP diastolic 63–71; PULSE 101–108; RESP 22–30; TEMP 98.9–100.3; O2SAT 98–100
[2017-07-12] MEDS: methylPREDNISolone SOD SUCC 40 MG/1 ML VIAL IV PUSH SCH ×2 (00:25→08:01)
[2017-07-12] MEDS: INSULIN ASPART SUPPLEMENTAL SCALE SQ SCH ×3 (00:39→11:41)
[2017-07-12] MEDS: CHLORHEXIDINE GLUCONATE 2 % 1 PACK (2 CLOTHS) TOP SCH (03:30)
[2017-07-12] MEDS: PIPERACIL-TAZO 3.375 GM PREMIX 50 ML IV SCH ×2 (03:36→08:01)
[2017-07-12] MEDS: DILTIAZEM INJ 125 MG in SODIUM CHLORIDE 0.9% INJ 100 ML IV SCH ×2 (03:36→13:10)
[2017-07-12] MEDS: RESP: ALBUTEROL 2.5 MG/IPRATROPIUM 0.5 MG NEB (SCH) NEB ×3 (04:09→15:21)
--- NOTE | 2017-07-12 04:40 | RADRPT ---
EXAM DATE/TIME: 07/12/2017 03:47 [facility] COMPARISON: CHEST SINGLE AP, July 11, 2017, 4:41. INDICATIONS : Evalaute for respiratory failure. MEDICAL HISTORY : Carcinoma, lung. Carcinoma, liver. SURGICAL HISTORY : None. ENCOUNTER: Subsequent ACUITY: 3 days PAIN SCORE: Non-responsive. LOCATION: chest FINDINGS: A single view of the chest demonstrates persistent bilateral airspace disease with associated effusio ns. No significant interval change. Endotracheal and nasogastric tubes are unchanged in position. Hea rt size is normal. CONCLUSION: Stable chest with bibasilar airspace consolidation/effusions. Diego Ng MD on July 12, 2017 at 4:38 Board Certified Radiologist. This report was verified electronically.
[2017-07-12] MEDS: PROPOFOL 1000 MG/100 ML INJ 100 ML IV SCH ×2 (06:04→14:41)
[2017-07-12 06:58] LABS: BLOOD GAS BASE EXCESS -5.6 mmol/L (-2-2); BLOOD GAS CARBOXYHEMOGLOBIN 1.8 % (0-4); BLOOD GAS HCO3 18 mmol/L (22-26); BLOOD GAS O2 HGB SATURATION 68 % (90-100); BLOOD GAS OXYGEN CONTENT 8.3 Vol % (12.0-20.0); BLOOD GAS PCO2 30 mmHg (38-42); BLOOD GAS PO2 45 mmHg (61-120); BLOOD GAS TOTAL HGB 8.6 G/DL (12.0-16.0); TEMP CORR TO 98.6
[2017-07-12 07:00] LABS: CRITICAL VALUE YES; DRAW SITE RT RADIAL; FIO2 45 %; NUMBER OF ARTERIAL PUNCTURES 1; OXYGEN DEVICE VENT; STAT NO; ULNAR PULSE PRESENT
[2017-07-12 07:23] LABS: BLOOD GAS BASE EXCESS -5.1 mmol/L (-2-2); BLOOD GAS CARBOXYHEMOGLOBIN 2.3 % (0-4); BLOOD GAS HCO3 18 mmol/L (22-26); BLOOD GAS METHEMOGLOBIN 1.1 % (0-2); BLOOD GAS O2 HGB SATURATION 95 % (90-100); BLOOD GAS OXYGEN CONTENT 11.4 Vol % (12.0-20.0); BLOOD GAS PCO2 24 mmHg (38-42); BLOOD GAS PO2 98 mmHg (61-120); BLOOD GAS TOTAL HGB 8.4 G/DL (12.0-16.0); TEMP CORR TO 98.6
[2017-07-12 07:24] LABS: CRITICAL VALUE YES; FIO2 45 %; OXYGEN DEVICE VENT
[2017-07-12 07:25] LABS: DRAW SITE LT RADIAL; NUMBER OF ARTERIAL PUNCTURES 1; STAT NO; ULNAR PULSE PRESENT
--- NOTE | 2017-07-12 07:56 | MG ---
cc: ROMAN UGARTE M.D. Lab No: [id number] Date: 07/12/2017 Age: 56 Sex: F Race: __ INDICATIONS Hyperventilation not performed, intubated, possible mets, change in mental status. This is a 56-year-old woman with liver cancer. MEDICATIONS Solu-Medrol DESCRIPTION The recording shows some sharply contoured bifrontal waves which looked to be somewhat, at times, triphasic appearing. This is on a background of, at times, some alpha waves bilaterally posteriorly and symmetric, other times, mostly diffuse slowing in the 4 Hz range. At times, the waves are a little bit sharp such as at epoch 29 in the left frontal head region. a little bit more predominant on the left than the right. No prolonged seizure activity is noted. Photic stimulation was performed without significant posterior driving. IMPRESSION This is consistent with a moderate to severe diffuse encephalopathy. There is some bifrontal sharps which appear to be more metabolic, although at times a little bit more on the left than the right and with an increased, propensity for seizures. Clinical correlation is needed. MD SAL De La Fuente/THERESA /7:26 AM /7:38 AM
[2017-07-12] MEDS: CHLORHEXIDINE 0.12% (ORAL KIT) 15 ML CUP MT SCH (08:01)
[2017-07-12] MEDS: PANTOPRAZOLE SODIUM 40 MG VIAL IV SCH (08:01)
[2017-07-12] MEDS: SODIUM CHLOR 0.9% 1000 ML INJ 1,000 ML IV SCH (08:02)
[2017-07-12] MEDS: SODIUM CHLORIDE 0.9% FLUSH 10 ML FLUSH IV FLUSH SCH (08:02)
--- NOTE | 2017-07-12 10:49 | HHI.HCPN ---
Reason for visit a. To assist with evaluation and management of symptoms including: Shortness of breath and debility. b. To assist medical decision maker(s) with: better understanding of current medical conditions; weighing benefits/burdens of medical treatment options; making medical treatment decisions. . Subjective/Interval History Mrs. Kyleigh Dumas is a 56-year-old female with a medical history significant for metastatic adenocarcinoma of the lung s/p chemotherapy, immunotherapy and drained radiation. Patient with a history of thrombocytopenia , COPD, CAD s/p stent placement who presented to [place] ED via [facility] on 07/10/17 for evaluation of altered mental status. Patient was endotracheally intubated and placed on mechanical ventilation. Abdomen/pelvis CT revealing metastatic disease with multiple lesions to liver, spleen. Head CT revealing 2 focal areas of increased density suggesting hemorrhage, lytic lesion to left frontal bone concerning for metastatic disease. Palliative care was consulted for further clarifications of goals of care given overall poor prognosis. Patient was seen in ICU, she remains orally intubated on mechanical ventilation. Sedated, unresponsive to verbal or tactile stimuli. Remains on Cardizem drip, tachycardic with heart rate in the low 100s. 45% FiO2, oxygen saturation in the high 90s. Continue running low-grade fevers, max temp 100.8. Very cold to the touch right lower extremity, large area of ecchymosis on upper inner thigh. Multiple cyanotic fingers on bilateral hands. EEG 07/11/17 revealing moderate to severe encephalopathy. Brain MRI 07/11/17 revealing acute/ subacute cortical infarct involving the left MCA and punctuate areas of hemorrhage. Patient appears to be rapidly decompensating, plan for compassionate withdrawal life support this afternoon. Telephone conversation with healthcare proxy decision maker Dariana Landers. Dariana electing to involve patient into hospice services, withdrawal life support at hospice care center this evening. Referral has been made. This has been discussed with hospice admissions nurse. 15:28 - 16:06. Family meeting. In attendance HCP Dariana landers, patient's daughter Camila Tirado, patient's best friend Katya Rey, cousin Shandra Sanders, Arturo Gilbert and additional family members. Palliative care social security assessor Yulia Nicholson, Kristin KAPLAN and Maribel KAPLAN. Medical update provided. Daughter Gretta who has cognitive deficits was given the opportunity to ask questions regarding patient's prognosis and discussed compassionate withdrawal of life support process. Anticipatory guidance provided. All questions were answered in great detail. Ongoing emotional support and active listening provided. Family very appreciative of our meeting today. Case discussed with Dr. Calle and bedside RN Santos. . Family/friend interactions See interval note. . Advance Directives Living Will: Never completed Health Care Surrogate: Never completed Durable Power of Campaign Specialist: Never completed Advance Directive Specifics Health Care Surrogate(s): [place], healthcare proxy decision maker falls to patient's only daughter. However, adult daughter with cognitive deficits. Both the patient's parents or siblings are . Patient has 4 cousins who are alive. 3 declined to participate in medical decision-making. Therefore, healthcare proxy decision-making falls to patient's cousin Dariana Landers. . Significant change in goals: Goals of care remain unchanged. . Objective Vital Signs Date Time Temp Pulse Resp B/P Pulse Ox O2 Delivery O2 Flow Rate FiO2 07/12/17 10:12 100 45 07/12/17 10:00 103 07/12/17 08:00 45 07/12/17 08:00 100.3 103 28 98/66 100 07/12/17 08:00 103 07/12/17 07:54 98 45 07/12/17 06:00 105 07/12/17 04:08 99 Ventilator 07/12/17 04:04 100 45 07/12/17 04:00 45 07/12/17 04:00 104 07/12/17 04:00 99.7 104 30 109/71 98 07/12/17 02:00 101 07/12/17 01:05 100 Ventilator 07/12/17 01:03 100 45 07/12/17 00:00 45 07/12/17 00:00 107 07/12/17 00:00 100.8 107 28 113/70 99 07/11/17 22:00 115 07/11/17 21:40 99 Ventilator 07/11/17 21:25 99 45 07/11/17 20:00 105 07/11/17 20:00 100.6 105 12 108/70 99 07/11/17 20:00 45 07/11/17 18:00 110 07/11/17 16:32 97 45 07/11/17 16:00 45 07/11/17 16:00 98.5 104 23 97 07/11/17 16:00 104 07/11/17 14:00 111 07/11/17 13:33 97 45 07/11/17 12:00 45 07/11/17 12:00 98.9 110 24 116/77 98 07/11/17 12:00 108 07/11/17 11:33 97 45 Intake & Output 07/12/17 07/12/17 07:00 19:00 Intake Total 1758 ml Output Total 300 ml Balance 1458 ml Intake IV Total 1418 ml Tube Feeding 140 ml Other 200 ml Output Urine Total 300 ml Physical Exam CONSTITUTIONAL/GENERAL: This is an adequately nourished patient, endotracheally intubated on mechanical ventilation. Sedated. TUBES/LINES/DRAINS: ETT, OG, PIV's, Thao catheter, bilateral soft wrist restraints. SKIN: No jaundice, rashes, or lesions. Ecchymoses on upper extremities. No wounds seen anteriorly. Not diaphoretic. HEAD: Atraumatic. Normocephalic. EYES: Pupils equal and round and reactive. No scleral icterus. No injection or drainage. ENT: Hearing grossly normal. Nose without bleeding or purulent drainage. Moist oral mucosa. NECK: Trachea midline. CARDIOVASCULAR: Tachycardic, heart rate in the low 110s. Regular rate. Cold right lower extremity, large area of ecchymosis to right upper inner thigh. Multiple cyanotic fingers laterally. RESPIRATORY/CHEST: Symmetric, unlabored respirations. Endotracheally intubated on mechanical ventilation. Coarse breath sounds bilaterally.. GASTROINTESTINAL: Abdomen soft, round, nondistended. Bowel sounds present. GENITOURINARY: Without palpable bladder distension. Thao catheter in place. MUSCULOSKELETAL: Extremities without clubbing, cyanosis. Cold bilateral lower extremities. Edema to bilateral lower extremities. NEUROLOGICAL: Sedated, unresponsive to verbal or tactile stimuli. PSYCHIATRIC: Unable to evaluate secondary to clinical condition. . Diagnostic Tests Laboratory Laboratory Tests Test 07/10/17 07/10/17 07/10/17 07/10/17 02:10 02:50 04:25 04:30 White Blood Count 10.6 TH/MM3 (4.0-11.0) Red Blood Count 3.30 MIL/MM3 (4.00-5.30) Hemoglobin 10.2 GM/DL (11.6-15.3) Hematocrit 31.3 % (35.0-46.0) Mean Corpuscular Volume 94.7 FL (80.0-100.0) Mean Corpuscular Hemoglobin 30.7 PG (27.0-34.0) Mean Corpuscular Hemoglobin 32.5 % Concent (32.0-36.0) Red Cell Distribution Width 23.1 % (11.6-17.2) Platelet Count 27 TH/MM3 (150-450) Mean Platelet Volume 9.6 FL (7.0-11.0) Neutrophils (%) (Auto) 62.4 % (16.0-70.0) Lymphocytes (%) (Auto) 17.5 % (9.0-44.0) Monocytes (%) (Auto) 14.8 % (0.0-8.0) Eosinophils (%) (Auto) 4.1 % (0.0-4.0) Basophils (%) (Auto) 1.2 % (0.0-2.0) Neutrophils # (Auto) 6.6 TH/MM3 (1.8-7.7) Lymphocytes # (Auto) 1.9 TH/MM3 (1.0-4.8) Monocytes # (Auto) 1.6 TH/MM3 (0-0.9) Eosinophils # (Auto) 0.4 TH/MM3 (0-0.4) Basophils # (Auto) 0.1 TH/MM3 (0-0.2) CBC Comment AUTO DIFF Differential Comment AUTO DIFF CONFIRMED Platelet Estimate LOW (NORMAL) Platelet Morphology Comment ENLARGED (NORMAL) Acanthocytes OCC (NORMAL) Keratocytes OCC (NORMAL) Prothrombin Time 17.8 SEC (9.8-11.6) Prothromb Time International 1.6 RATIO Ratio Activated Partial 28.6 SEC Thromboplast Time (24.3-30.1) Urine Color YELLOW (YELLW/STRAW) Urine Turbidity HAZY (CLEAR) Urine pH 5.5 (5.0-8.5) Urine Specific [place] 1.025 (1.002-1.035) Urine Protein 100 mg/dL (NEG-TRACE) Urine Glucose (UA) NEG mg/dL (NEG) Urine Ketones 10 mg/dL (NEG) Urine Occult Blood SMALL (NEG) Urine Nitrite NEG (NEG) Urine Bilirubin NEG (NEG) Urine Urobilinogen LESS THAN 2.0 MG/DL (LESS THAN 2.0) Urine Leukocyte Esterase NEG (NEG) Urine RBC 1 /hpf (0-3) Urine WBC 2 /hpf (0-5) Urine Squamous Epithelial 3 /hpf (0-5) Cells Urine Hyaline Casts 5 /lpf (RARE) Urine Mucus FEW /lpf (OCC) Microscopic Urinalysis Comment CULT NOT INDICATED Sodium Level 136 MEQ/L (136-145) Potassium Level 5.1 MEQ/L (3.5-5.1) Chloride Level 104 MEQ/L (98-107) Carbon Dioxide Level 18.3 MEQ/L (21.0-32.0) Anion Gap 14 MEQ/L (5-15) Blood Urea Nitrogen 33 MG/DL (7-18) Creatinine 1.45 MG/DL (0.50-1.00) Estimat Glomerular Filtration 31 ML/MIN (>89) Rate Random Glucose 146 MG/DL (74-106) Lactic Acid Level 4.2 mmol/L 3.6 mmol/L (0.4-2.0) (0.4-2.0) Calcium Level 8.7 MG/DL (8.5-10.1) Magnesium Level 2.0 MG/DL (1.5-2.5) Total Bilirubin 0.8 MG/DL (0.2-1.0) Aspartate Amino Transf 55 U/L (15-37) (AST/SGOT) Alanine Aminotransferase 21 U/L (10-53) (ALT/SGPT) Alkaline Phosphatase 149 U/L (45-117) Ammonia 26 MCMOL/L (11-32) Total Creatine Kinase 114 U/L (26-192) Creatine Kinase MB 2.3 NG/ML (0.5-3.6) Troponin I 0.11 NG/ML (0.02-0.05) C-Reactive Protein 8.88 MG/DL (0.00-0.30) B-Type Natriuretic Peptide 537 PG/ML (0-100) Total Protein 6.4 GM/DL (6.4-8.2) Albumin 2.6 GM/DL (3.4-5.0) Lipase 86 U/L (73-393) Thyroid Stimulating Hormone 1.630 uIU/ML 3rd Gen (0.358-3.740) Urine Opiates Screen NEG (NEG) Urine Barbiturates Screen NEG (NEG) Urine Amphetamines Screen NEG (NEG) Urine Benzodiazepines Screen POS (NEG) Urine Cocaine Screen NEG (NEG) Urine Cannabinoids Screen NEG (NEG) Ethyl Alcohol Level LESS THAN 3 MG/DL (0-5) Blood Gas Puncture Site RT RADIAL Blood Gas Patient Temperature 98.6 Blood Gas HCO3 15 mmol/L (22-26) Blood Gas Base Excess -9.4 mmol/L (-2-2) Blood Gas Oxygen Saturation 98 % (90-100) Arterial Blood pH 7.34 (7.380-7.420) Arterial Blood Partial 30 mmHg (38-42) Pressure CO2 Arterial Blood Partial 354 mmHG Pressure O2 (61-120) Arterial Blood Oxygen Content 13.2 Vol % (12.0-20.0) Arterial Blood 2.2 % (0-4) Carboxyhemoglobin Arterial Blood Methemoglobin 0.4 % (0-2) Blood Gas Hemoglobin 8.9 G/DL (12.0-16.0) Oxygen Delivery Device VENTILATOR Blood Gas Ventilator Setting PRVC/AC Blood Gas Inspired Oxygen 100 % Salicylates Level LESS THAN 1.7 MG/DL (2.8-20.0) Acetaminophen Level 2.8 MCG/ML (10.0-30.0) Test 07/10/17 07/10/17 07/10/17 07/10/17 07:07 09:10 10:00 15:40 Total Creatine Kinase 100 U/L 108 U/L (26-192) (26-192) Troponin I 1.47 NG/ML 1.04 NG/ML (0.02-0.05) (0.02-0.05) Sodium Level 139 MEQ/L (136-145) Potassium Level 3.4 MEQ/L (3.5-5.1) Chloride Level 106 MEQ/L (98-107) Carbon Dioxide Level 22.9 MEQ/L (21.0-32.0) Anion Gap 10 MEQ/L (5-15) Blood Urea Nitrogen 33 MG/DL (7-18) Creatinine 1.57 MG/DL (0.50-1.00) Estimat Glomerular Filtration 28 ML/MIN (>89) Rate Random Glucose 129 MG/DL (74-106) Calcium Level 7.1 MG/DL (8.5-10.1) Protein Corrected Calcium 8.0 MG/DL (8.5-10.1) Total Protein 5.4 GM/DL (6.4-8.2) Blood Type A POSITIVE Antibody Screen NEGATIVE Blood Bank Comment Lactic Acid Level 4.2 mmol/L (0.4-2.0) Test 07/10/17 07/11/17 07/12/17 07/12/17 18:00 05:34 06:00 06:27 Nasal Screen MRSA (PCR) MRSA NOT DETECTED (NOT DETECT) White Blood Count 6.9 TH/MM3 (4.0-11.0) Red Blood Count 2.56 MIL/MM3 (4.00-5.30) Hemoglobin 8.0 GM/DL (11.6-15.3) Hematocrit 23.8 % (35.0-46.0) Mean Corpuscular Volume 93.3 FL (80.0-100.0) Mean Corpuscular Hemoglobin 31.5 PG (27.0-34.0) Mean Corpuscular Hemoglobin 33.7 % Concent (32.0-36.0) Red Cell Distribution Width 23.1 % (11.6-17.2) Platelet Count 43 TH/MM3 (150-450) Mean Platelet Volume 8.2 FL (7.0-11.0) Neutrophils (%) (Auto) 72.7 % (16.0-70.0) Lymphocytes (%) (Auto) 14.3 % (9.0-44.0) Monocytes (%) (Auto) 12.4 % (0.0-8.0) Eosinophils (%) (Auto) 0.1 % (0.0-4.0) Basophils (%) (Auto) 0.5 % (0.0-2.0) Neutrophils # (Auto) 5.0 TH/MM3 (1.8-7.7) Lymphocytes # (Auto) 1.0 TH/MM3 (1.0-4.8) Monocytes # (Auto) 0.9 TH/MM3 (0-0.9) Eosinophils # (Auto) 0.0 TH/MM3 (0-0.4) Basophils # (Auto) 0.0 TH/MM3 (0-0.2) CBC Comment AUTO DIFF Differential Comment AUTO DIFF CONFIRMED Platelet Estimate LOW (NORMAL) Platelet Morphology Comment NORMAL (NORMAL) Sodium Level 140 MEQ/L (136-145) Potassium Level 3.8 MEQ/L (3.5-5.1) Chloride Level 105 MEQ/L (98-107) Carbon Dioxide Level 20.2 MEQ/L (21.0-32.0) Anion Gap 15 MEQ/L (5-15) Blood Urea Nitrogen 39 MG/DL (7-18) Creatinine 1.62 MG/DL (0.50-1.00) Estimat Glomerular Filtration 33 ML/MIN (>89) Rate Random Glucose 141 MG/DL (74-106) Calcium Level 7.6 MG/DL (8.5-10.1) Phosphorus Level 4.8 MG/DL (2.5-4.9) Magnesium Level 2.1 MG/DL (1.5-2.5) Total Bilirubin 1.3 MG/DL (0.2-1.0) Aspartate Amino Transf 2322 U/L (AST/SGOT) (15-37) Alanine Aminotransferase 1244 U/L (ALT/SGPT) (10-53) Alkaline Phosphatase 118 U/L (45-117) Total Protein 5.9 GM/DL (6.4-8.2) Albumin 2.4 GM/DL (3.4-5.0) Blood Gas Puncture Site LT RADIAL LT RADIAL Blood Gas Patient Temperature 98.6 98.6 Blood Gas HCO3 18 mmol/L 18 mmol/L (22-26) (22-26) Blood Gas Base Excess -5.1 mmol/L -5.1 mmol/L (-2-2) (-2-2) Blood Gas Oxygen Saturation 95 % (90-100) 95 % (90-100) Arterial Blood pH 7.49 7.49 (7.380-7.420) (7.380-7.420) Arterial Blood Partial 24 mmHg (38-42) 24 mmHg (38-42) Pressure CO2 Arterial Blood Partial 98 mmHg 98 mmHg Pressure O2 (61-120) (61-120) Arterial Blood Oxygen Content 11.4 Vol % 11.4 Vol % (12.0-20.0) (12.0-20.0) Arterial Blood 2.3 % (0-4) 2.3 % (0-4) Carboxyhemoglobin Arterial Blood Methemoglobin 1.1 % (0-2) 1.1 % (0-2) Blood Gas Hemoglobin 8.4 G/DL 8.4 G/DL (12.0-16.0) (12.0-16.0) Oxygen Delivery Device VENT VENTILATOR Blood Gas [facility] Blood Gas Inspired Oxygen 45 % 45 % Test 07/12/17 06:28 Blood Gas Puncture Site RT RADIAL Blood Gas Patient Temperature 98.6 Blood Gas HCO3 18 mmol/L (22-26) Blood Gas Base Excess -5.6 mmol/L (-2-2) Blood Gas Oxygen Saturation 68 % (90-100) Arterial Blood pH 7.40 (7.380-7.420) Arterial Blood Partial 30 mmHg (38-42) Pressure CO2 Arterial Blood Partial 45 mmHg Pressure O2 (61-120) Arterial Blood Oxygen Content 8.3 Vol % (12.0-20.0) Arterial Blood 1.8 % (0-4) Carboxyhemoglobin Arterial Blood Methemoglobin 1.0 % (0-2) Blood Gas Hemoglobin 8.6 G/DL (12.0-16.0) Oxygen Delivery Device VENT Blood Gas Ventilator [facility]15500/8/45 Blood Gas Inspired Oxygen 45 % Result Diagram: 07/11/17 0534 07/11/17 0534 Microbiology Microbiology Date/Time Procedure Status Source Growth 07/10/17 02:10 Aerobic Blood Culture - Preliminary Resulted Blood Peripheral NO GROWTH IN 1 DAY 07/10/17 02:10 Anaerobic Blood Culture - Preliminary Resulted Blood Peripheral NO GROWTH IN 1 DAY 07/10/17 02:15 Aerobic Blood Culture - Preliminary Resulted Blood Peripheral NO GROWTH IN 1 DAY 07/10/17 02:15 Anaerobic Blood Culture - Final Resulted Bacillus Species Not Anthracis Imaging Last 24 hours Impressions Chest X-Ray 07/12/17 0600 Signed Impressions: Service Date/Time: Wednesday, July 12, 2017 03:47 - CONCLUSION: Stable chest with bibasilar airspace consolidation/effusions. Diego Ng MD Procedures * 07/10/17 -endotracheal intubation . Assessment and Plan Disease Oriented Problem List: (1) Acute respiratory failure requiring reintubation (2) Metastatic lung cancer (metastasis from lung to other site) (3) Thrombocytopenia (4) Pleural effusion Symptom Scale: (1) Shortness of breath 0-10 Scale: Unable to quantify Comment: Intubated, mechanical ventilation. (2) Debility 0-10 Scale: Unable to quantify Comment: Progressive. Worsened during the past 2 months. Pertinent Non-Medical Issues Psychosocial: Patient originally from [place], she is an [place] citizen. , 20 years ago. One daughter, Henny who is 26 years old with special -Asperger's and bipolar. Daughter is also reported with cognitive deficits. Living independently at home with daughter. 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 Both parents are , brother is . Spiritual: No church affiliations. Legal: No advance directives completed. Ethical issues impacting care: No advance directives. Patient unable to participating in medical decision-making given her clinical condition. Only adult daughter is reported with cognitive deficits. Pending contact with additional family members. . Important Contacts HCP: cousin Dariana Kaushik Patient's daughter Henny Tirado Cousin Tyler Hunt Cousin Eloisa Sanders Cousin Arturo Gilbert Friend Eva Dowling & Friend Katya Candido & . . Prognosis Mrs. Kyleigh Dumas is a 56-year-old female with a medical history significant for metastatic adenocarcinoma of the lung s/p chemotherapy, immunotherapy and drained radiation. Patient with a history of thrombocytopenia , COPD, CAD s/p stent placement who presented to [place] ED via [facility] on 07/10/17 for evaluation of altered mental status. Patient was intubated and placed on mechanical ventilation given worsening respiratory failure. Overall prognosis is very poor given progressive metastatic disease, acute events, multiple comorbidities and profound physical deconditioning. . Code Status: No Code Plan * CODE STATUS: No code. Cousin Dariana Landers acting as HCP electing to change code status from full code to NO code. * HEALTHCARE DECISION-MAKING: Patient unable to participating in medical decision-making secondary to clinical condition, unresponsive on ventilator support. No advance directives completed. Patient's is , both parents and brother are . As per [place] statute, healthcare proxy decision maker falls to patient's only daughter Henny. However, adult daughter with cognitive deficits, Asperger's syndrome and bipolar: unable to serve in this capacity given her condition, daughter was dependent on patient for care. Patient's only family are her 4 cousins Dariana Landers, Tyler Hunt, Arturo Hunt and Eloisa Sanders. Palliative care spoke with all 4 cousins; Arturo Hunt , Eloisa Sanders and Tyler Hunt DECLINED to participating in medical decision- making. Therefore, as per [place] statue, healthcare proxy decision-making falls to patient's cousin Dariana Landers. * Patient has 2 friends who have been very involved in her care, Eva and Katya. * GOALS OF CARE: HCP cousin Dariana Landers, with support of patient's addl 3 cousins (see above) and pt's 2 best friends Eva and Katya electing to transition patient to comfort-directed care/compassionate withdrawal of life support given patient's poor prognosis and known wishes. Compassionate withdrawal of life support to occur this Thursday 07/12 at 20:00 at [facility]. * Family meeting with pt's daughter Camila and additional family members held this afternoon. * SYMPTOMS: = Shortness of breath, secondary to acute respiratory failure. Remains intratracheally intubated on mechanical ventilation. = Debility, progressive. Worsened during the past 2 months. * Case discussed with Dr. Calle, hospice admissions nurse Kianna and bedside RN Santos. * Anticipatory guidance provided. * Spiritual services following. * Ongoing emotional support and active listening provided. * Palliative care contact information has been provided to patient's family and friends. . Time Spent Total Floor Time (mins): 62 (Total time to include review and summarization of medical records, physical exam, telephone conversation with healthcare proxy decision maker Dariana, family meeting from 15:28 - 16:06 and case discussion with Dr. Calle, last chalker Kianna and bedside nurse Santos. ) >50% Counseling/Coord of Care: Yes Attestation To help prompt me to consider important information that might be impacting today's encounter and assessment, information from prior notes written by myself or my colleagues may have been "brought forward" into today's note. My signature on this note, however, is an attestation that I personally performed the exam, history, and/or decision-making noted today, and, unless otherwise indicated, the interactions with patient, family, and staff as well as the review of records all occurred today. I also attest that the listed assessment and stated plan reflect my best clinical judgment today based on the combination of historical information, prior notes, and today's exam/ interactions. When time spent is documented, it refers only to time spent today by the signer, or if indicated, combined time spent today by collaborating physician/nurse practitioner. Maribel Dumont Jul 12, 2017 10:49
[2017-07-12 11:29] LABS: HEMATOCRIT 25.8 % (35.0-46.0); MEAN CELL VOLUME 93.9 FL (80.0-100.0); MEAN CORPUSCULAR HEMOGLOBIN 30.7 PG (27.0-34.0); MEAN CORPUSCULAR HGB CONC 32.6 % (32.0-36.0); RED BLOOD COUNT 2.75 MIL/MM3 (4.00-5.30); RED CELL DISTRIBUTION WIDTH 23.4 % (11.6-17.2)
--- NOTE | 2017-07-12 11:46 | HHI.CCPN ---
Subjective Remarks/Hospital Course 56-year-old female with a history of metastatic adenocarcinoma. Lung with brain metastases as well as intrathoracic and intra-abdominal metastases status post previous chemotherapy being followed by Dr. Singh for oncology. She also has a history of DVT and pulmonary embolism however is not a candidate for anticoagulation because of thrombocytopenia and brain metastases. Patient lives with her mentally adult daughter. She reportedly developed altered mental status a day prior to her presentation. Her daughter called EMS when she developed shortness of breath. Patient was tachycardic with respiratory rate in the 30s O2 sat mid 90s on room air however subsequently decompensated and following arrival in the ER was intubated and placed on mechanical ventilation. Prior to intubation patient attempted to follow commands however had unintelligible speech. Patient's name is Kyleigh Beth Subjective: 07/11: The patient's heart rate remains [id number] currently on Cardizem infusion the patient continues on minimal sedation with Diprivan infusion. MRI planned to be performed today results pending. Palliative care following tentative plan for comfort care measures with ventilator withdrawal schedule for 07/12/17. 07/12: The patient continues on Cardizem infusion at 15 mg/hour. MRI revealed yesterday subacute/acute infarct in the left MCA region additionally hemorrhagic areas. Plan today for discharge to hospice medical facility for comfort care measures and ventilator withdrawal. Objective Vital Signs Date Time Temp Pulse Resp B/P Pulse Ox O2 Delivery O2 Flow Rate FiO2 07/12/17 10:12 100 45 07/12/17 10:00 103 07/12/17 08:00 100.3 28 98/66 07/12/17 04:08 Ventilator Intake and Output 07/11/17 07/11/17 07/12/17 08:00 16:00 00:00 Intake Total 780 ml 861 ml 738 ml Output Total 250 ml 250 ml 200 ml Balance 530 ml 611 ml 538 ml Result Diagram: 07/11/17 0534 07/11/17 0534 Other Results Laboratory Tests Test 07/12/17 07/12/17 07/12/17 06:00 06:27 06:28 Blood Gas Puncture Site LT RADIAL LT RADIAL RT RADIAL Blood Gas Patient Temperature 98.6 98.6 98.6 Blood Gas HCO3 18 mmol/L 18 mmol/L 18 mmol/L (22-26) (22-26) (22-26) Blood Gas Base Excess -5.1 mmol/L -5.1 mmol/L -5.6 mmol/L (-2-2) (-2-2) (-2-2) Blood Gas Oxygen Saturation 95 % (90-100) 95 % (90-100) 68 % (90-100) Arterial Blood pH 7.49 7.49 7.40 (7.380-7.420) (7.380-7.420) (7.380-7.420) Arterial Blood Partial 24 mmHg (38-42) 24 mmHg (38-42) 30 mmHg (38-42) Pressure CO2 Arterial Blood Partial 98 mmHg 98 mmHg 45 mmHg Pressure O2 (61-120) (61-120) (61-120) Arterial Blood Oxygen Content 11.4 Vol % 11.4 Vol % 8.3 Vol % (12.0-20.0) (12.0-20.0) (12.0-20.0) Arterial Blood 2.3 % (0-4) 2.3 % (0-4) 1.8 % (0-4) Carboxyhemoglobin Arterial Blood Methemoglobin 1.1 % (0-2) 1.1 % (0-2) 1.0 % (0-2) Blood Gas Hemoglobin 8.4 G/DL 8.4 G/DL 8.6 G/DL (12.0-16.0) (12.0-16.0) (12.0-16.0) Oxygen Delivery Device VENT VENTILATOR VENT Blood Gas Ventilator Setting PRVC/15/500/8/45 PRVC/15/500/8/45 Blood Gas Inspired Oxygen 45 % 45 % 45 % Imaging Last Impressions Chest X-Ray 07/11/17 0600 Signed Impressions: Service Date/Time: June 04:41 - CONCLUSION: There is new left lower lobe consolidation and enlarging right pleural effusion. Ralph Jin MD CT Angiography 07/10/17 2794 Signed Impressions: Service Date/Time: Monday, July 10, 2017 05:21 - CONCLUSION: 1. The study is negative for pulmonary embolism. 2. Diffuse bilateral opacities and consolidation in the lungs. 3. Large right pleural effusion and significant adenopathy in the middle mediastinum and right hilum, highly suspicious for malignancy. Ralph Jin MD Head CT 07/10/17 0203 Signed Impressions: Service Date/Time: Monday, July 10, 2017 05:17 - CONCLUSION: 2 focal areas of increased density in the deep white matter tracts on the right possible hemorrhage. Lytic lesion left frontal bone concerning for metastatic disease. Zeferino Menendez MD Abdomen/Pelvis CT 07/10/17 0000 Signed Impressions: Service Date/Time: Monday, July 10, 2017 05:21 - CONCLUSION: 1. Findings suggest metastatic disease with multiple low density lesions in the liver, a solitary low density lesion in the inferior spleen, and probable left adrenal mass. 2. 2 abdominal aortic aneurysms, both measuring 3 cm and both being saccular in configuration. 3. Absent enhancement in the inferior left kidney suggesting either an infiltrative process or vascular compromise. 4. Multiple abnormalities of the chest, described on CT pulmonary angiogram. Ralph Jin MD Objective Remarks GENERAL: Critically ill-appearing , older than stated age female intubated and sedated. SKIN: Warm and dry. HEAD: Atraumatic. Normocephalic. EYES: Pupils equal and round. No scleral icterus. No injection or drainage. ENT: No nasal bleeding or discharge. Mucous membranes pink and moist. Oral tracheal intubation NECK: Trachea midline. No JVD. CARDIOVASCULAR: Sinus tachycardia, regular rhythm. Cardizem infusion RESPIRATORY: No accessory muscle use.Mechanical ventilation. Clear to auscultation. Breath sounds equal bilaterally. GASTROINTESTINAL: Abdomen soft, non-tender, nondistended. No guarding. MUSCULOSKELETAL: Extremities without clubbing, cyanosis, or edema. No obvious deformities. Bilateral lower extremities cool to touch, unable to obtain DP Doppler pulses this a.m., posterior tibial left dopplerable NEUROLOGICAL: GCS 3T A/P Assessment and Plan 56-year-old female with: Encephalopathy Acute respiratory failure on mechanical ventilation Metastatic lung cancer with brain metastases, intrathoracic metastases, intra- abdominal metastases Thrombocytopenia CAD History of pulmonary embolism History of DVT Hyperlipidemia history of hypertension Left MCA infarct Plan: Neuro: Sedation with propofol, follow up head CT. Encephalopathy likely from metastatic brain disease however need to rule out intracranial hemorrhage. 07/11 MRI [id number] results Cardiovascular: Continue IV hydration normal saline at 75 cc/hour. History of PE noted. Cannot be anticoagulated due to brain metastases. Pulmonary: Continue mechanical ventilation, vent bundle, bronchodilators. 07/10 CT pulmonary angiogram negative for PE. She has a history of pulmonary emboli however per Dr. Singh not a good candidate for anticoagulation at this time. GI/liver: Keep nothing by mouth for now. 07/10 CT abdomen pelvis -metastatic disease liver spleen and possibly left adrenal mass ID: Follow-up cultures. Empiric antibiotic coverage with IV Zosyn. Renal/: IV hydration, strict intake output, monitor and replete electrolytes, follow BUN/creatinine. Endocrine: Sliding scale insulin for glycemic control. Hemonc: Dr. Singh followingthe patient for her metastatic lung cancer as well as thrombocytopenia. Prophylaxis: PPI/SCDs. Awaiting head CT, CT pulmonary angiogram and CT abdomen pelvis at the time of this dictation which will be reviewed when available. Condition critical. Palliative care service following. Plan for discharge to hospice medical facility with family on ventilator, with plans for institution of comfort care measures and ventilator withdrawal at [facility]. This patient remains critically ill with one or more organ systems which are or may become a threat to life. I have spent in excess of 20 minutes discontinuously in the care and management of this patient. This time is exclusive of procedures, and includes, but is not limited to, evaluation of the patient, review of the medical record, discussions with family, consultants, nursing staff, or respiratory therapy, and documentation in the medical record. Physician Gloria Espinoza MD Jul 12, 2017 11:46
--- NOTE | 2017-07-12 11:53 | HHI.DS ---
Discharge Summary Admission Date Jul 10, 2017 at 04:54 Admitting Diagnosis Respiratory Failure, thrombocytopenia Brief History HPI 56-year-old female with a history of metastatic adenocarcinoma. Lung with brain metastases as well as intrathoracic and intra-abdominal metastases status post previous chemotherapy being followed by Dr. Singh for oncology. She also has a history of DVT and pulmonary embolism however is not a candidate for anticoagulation because of thrombocytopenia and brain metastases. Patient lives with her mentally adult daughter. She reportedly developed altered mental status a day prior to her presentation. Her daughter called EMS when she developed shortness of breath. Patient was tachycardic with respiratory rate in the 30s O2 sat mid 90s on room air however subsequently decompensated and following arrival in the ER was intubated and placed on mechanical ventilation. Prior to intubation patient attempted to follow commands however had unintelligible speech. Patient's name is Kyleigh Beth History PFSH Past Medical History Narrative Medical The patient's past medical history according to her daughter is significant for liver cancer and thrombocytopenia. Cancer: Yes (LUNG) with metastases to the brain as well as intrathoracic and intra-abdominal metastases DIC Coronary artery disease Hyperlipidemia Previous radiation therapy in 2017 at [facility] Hypertension Leptomeningeal intracranial metastatic disease Abdominal aortic aneurysm Diminished Hearing: No (UTO) Tetanus Vaccination: Unknown History of DVTs, PE Past Surgical History Narrative Surgical The patient's past surgical history is unable to be obtained. Surgical History: Unable to Obtain Social History Alcohol Use: No (UTO) Tobacco Use: No (UTO) Substance Use: No (UTO) Allergies-Medications Allergies-Medications (Allergen,Severity, Reaction): Coded Allergies: Unable to Assess (Verified Allergy, Unknown, 07/10/17) Reported Meds & Prescriptions Reported Meds & Active Scripts Active Active Prescriptions or Reported Medications To be clarified ROS Review of Systems ROS Limitations: Altered Mental Status, Unresponsive CBC/BMP: 07/11/17 0534 07/11/17 0534 Significant Findings Laboratory Tests Test 07/10/17 07/10/17 07/10/17 07/10/17 02:10 02:50 04:25 04:30 Red Blood Count 3.30 MIL/MM3 (4.00-5.30) Hemoglobin 10.2 GM/DL (11.6-15.3) Hematocrit 31.3 % (35.0-46.0) Red Cell Distribution Width 23.1 % (11.6-17.2) Platelet Count 27 TH/MM3 (150-450) Monocytes (%) (Auto) 14.8 % (0.0-8.0) Eosinophils (%) (Auto) 4.1 % (0.0-4.0) Monocytes # (Auto) 1.6 TH/MM3 (0-0.9) Platelet Estimate LOW (NORMAL) Platelet Morphology Comment ENLARGED (NORMAL) Acanthocytes OCC (NORMAL) Keratocytes OCC (NORMAL) Prothrombin Time 17.8 SEC (9.8-11.6) Urine Turbidity HAZY (CLEAR) Urine Protein 100 mg/dL (NEG-TRACE) Urine Ketones 10 mg/dL (NEG) Urine Occult Blood SMALL (NEG) Urine Mucus FEW /lpf (OCC) Carbon Dioxide Level 18.3 MEQ/L (21.0-32.0) Blood Urea Nitrogen 33 MG/DL (7-18) Creatinine 1.45 MG/DL (0.50-1.00) Estimat Glomerular Filtration 31 ML/MIN (>89) Rate Random Glucose 146 MG/DL (74-106) Lactic Acid Level 4.2 mmol/L 3.6 mmol/L (0.4-2.0) (0.4-2.0) Aspartate Amino Transf 55 U/L (15-37) (AST/SGOT) Alkaline Phosphatase 149 U/L (45-117) Troponin I 0.11 NG/ML (0.02-0.05) C-Reactive Protein 8.88 MG/DL (0.00-0.30) B-Type Natriuretic Peptide 537 PG/ML (0-100) Albumin 2.6 GM/DL (3.4-5.0) Urine Benzodiazepines Screen POS (NEG) Blood Gas HCO3 15 mmol/L (22-26) Blood Gas Base Excess -9.4 mmol/L (-2-2) Arterial Blood pH 7.34 (7.380-7.420) Arterial Blood Partial 30 mmHg (38-42) Pressure CO2 Arterial Blood Partial 354 mmHG Pressure O2 (61-120) Blood Gas Hemoglobin 8.9 G/DL (12.0-16.0) Salicylates Level LESS THAN 1.7 MG/DL (2.8-20.0) Acetaminophen Level 2.8 MCG/ML (10.0-30.0) Test 07/10/17 07/10/17 07/10/17 07/11/17 07:07 09:10 15:40 05:34 Troponin I 1.47 NG/ML 1.04 NG/ML (0.02-0.05) (0.02-0.05) Potassium Level 3.4 MEQ/L (3.5-5.1) Blood Urea Nitrogen 33 MG/DL (7-18) 39 MG/DL (7-18) Creatinine 1.57 MG/DL 1.62 MG/DL (0.50-1.00) (0.50-1.00) Estimat Glomerular Filtration 28 ML/MIN (>89) 33 ML/MIN (>89) Rate Random Glucose 129 MG/DL 141 MG/DL (74-106) (74-106) Calcium Level 7.1 MG/DL 7.6 MG/DL (8.5-10.1) (8.5-10.1) Protein Corrected Calcium 8.0 MG/DL (8.5-10.1) Total Protein 5.4 GM/DL 5.9 GM/DL (6.4-8.2) (6.4-8.2) Lactic Acid Level 4.2 mmol/L (0.4-2.0) Red Blood Count 2.56 MIL/MM3 (4.00-5.30) Hemoglobin 8.0 GM/DL (11.6-15.3) Hematocrit 23.8 % (35.0-46.0) Red Cell Distribution Width 23.1 % (11.6-17.2) Platelet Count 43 TH/MM3 (150-450) Neutrophils (%) (Auto) 72.7 % (16.0-70.0) Monocytes (%) (Auto) 12.4 % (0.0-8.0) Platelet Estimate LOW (NORMAL) Carbon Dioxide Level 20.2 MEQ/L (21.0-32.0) Total Bilirubin 1.3 MG/DL (0.2-1.0) Aspartate Amino Transf 2322 U/L (AST/SGOT) (15-37) Alanine Aminotransferase 1244 U/L (ALT/SGPT) (10-53) Alkaline Phosphatase 118 U/L (45-117) Albumin 2.4 GM/DL (3.4-5.0) Test 807/12/17 07/12/17 06:00 06:27 06:28 Blood Gas HCO3 18 mmol/L 18 mmol/L 18 mmol/L (22-26) (22-26) (22-26) Blood Gas Base Excess -5.1 mmol/L -5.1 mmol/L -5.6 mmol/L (-2-2) (-2-2) (-2-2) Arterial Blood pH 7.49 7.49 (7.380-7.420) (7.380-7.420) Arterial Blood Partial 24 mmHg (38-42) 24 mmHg (38-42) 30 mmHg (38-42) Pressure CO2 Arterial Blood Oxygen Content 11.4 Vol % 11.4 Vol % 8.3 Vol % (12.0-20.0) (12.0-20.0) (12.0-20.0) Blood Gas Hemoglobin 8.4 G/DL 8.4 G/DL 8.6 G/DL (12.0-16.0) (12.0-16.0) (12.0-16.0) Blood Gas Oxygen Saturation 68 % (90-100) Arterial Blood Partial 45 mmHg Pressure O2 (61-120) Imaging Last Impressions Chest X-Ray 07/12/17 0600 Signed Impressions: Service Date/Time: Wednesday, July 12, 2017 03:47 - CONCLUSION: Stable chest with bibasilar airspace consolidation/effusions. Diego Ng MD Brain MRI 07/11/17 0000 Signed Impressions: Service Date/Time: June 14:25 - CONCLUSION: 1. Large area of acute/subacute cortical infarct involving the left MCA distribution. 2. There are 2 small lesions evident in the white matter of the right parietal cortex. There is hemorrhage associated with these on the SWI images. These may simply represent punctate areas of hemorrhage secondary small cavernous angiomas; however, they could also represent hemorrhage in small metastatic foci. Post contrast imaging would be of benefit for further assessment. Akbar Templeton MD CT Angiography 07/10/17 0411 Signed Impressions: Service Date/Time: Monday, July 10, 2017 05:21 - CONCLUSION: 1. The study is negative for pulmonary embolism. 2. Diffuse bilateral opacities and consolidation in the lungs. 3. Large right pleural effusion and significant adenopathy in the middle mediastinum and right hilum, highly suspicious for malignancy. Ralph Jin MD Head CT 07/10/17 0203 Signed Impressions: Service Date/Time: Monday, July 10, 2017 05:17 - CONCLUSION: 2 focal areas of increased density in the deep white matter tracts on the right possible hemorrhage. Lytic lesion left frontal bone concerning for metastatic disease. Zeferino Menendez MD Abdomen/Pelvis CT 07/10/17 0000 Signed Impressions: Service Date/Time: Monday, July 10, 2017 05:21 - CONCLUSION: 1. Findings suggest metastatic disease with multiple low density lesions in the liver, a solitary low density lesion in the inferior spleen, and probable left adrenal mass. 2. 2 abdominal aortic aneurysms, both measuring 3 cm and both being saccular in configuration. 3. Absent enhancement in the inferior left kidney suggesting either an infiltrative process or vascular compromise. 4. Multiple abnormalities of the chest, described on CT pulmonary angiogram. Ralph Jin MD Hospital Course 56-year-old female with a history of metastatic adenocarcinoma. Lung with brain metastases as well as intrathoracic and intra-abdominal metastases status post previous chemotherapy being followed by Dr. Singh for oncology. She also has a history of DVT and pulmonary embolism however is not a candidate for anticoagulation because of thrombocytopenia and brain metastases. Patient lives with her mentally adult daughter. She reportedly developed altered mental status a day prior to her presentation. Her daughter called EMS when she developed shortness of breath. Patient was tachycardic with respiratory rate in the 30s O2 sat mid 90s on room air however subsequently decompensated and following arrival in the ER was intubated and placed on mechanical ventilation. Prior to intubation patient attempted to follow commands however had unintelligible speech. Patient's name is Kyleigh Beth Subjective: 07/11: The patient's heart rate remains [id number] currently on Cardizem infusion the patient continues on minimal sedation with Diprivan infusion. MRI planned to be performed today results pending. Palliative care following tentative plan for comfort care measures with ventilator withdrawal schedule for 07/12/17. 07/12: The patient continues on Cardizem infusion at 15 mg/hour. MRI revealed yesterday subacute/acute infarct in the left MCA region additionally hemorrhagic areas. Plan today for discharge to hospice medical facility for comfort care measures and ventilator withdrawal. Pt Condition on Discharge: Deteriorating Discharge Disposition: Hospice/Med Facility Discharge Instructions DIET: Follow Instructions for: On Tube Feeding Gloria Calle MD Jul 12, 2017 11:53
[2017-07-12 12:00] LABS: BICARBONATE 19.5 MEQ/L (21.0-32.0); MAGNESIUM 2.4 MG/DL (1.5-2.5)
[2017-07-12 12:24] LABS: CALCIUM-PROTEIN CORRECTED 8.3 MG/DL (8.5-10.1)
[2017-07-12 12:25] LABS: PLATELET COUNT 25 TH/MM3 (150-450); REVIEW FLAG FINAL
[2017-07-12 12:32] LABS: POTASSIUM 2.7 MEQ/L (3.5-5.1)
[2017-07-12] MEDS: POTASSIUM CHLOR 20 MEQ PREMIX 100 ML IV SCH ×2 (13:10→14:41)
--- NOTE | 2017-07-12 15:55 | HHI.PR ---
Review/Management Diagnosis left MCA stroke. Possible two small metastatic foci right parietal with small hemorrhage Plan repeat MRI next week to follow up on the right parietal lesions. Unable to do with contrast due to renal insufficiency check echo and carotid US asa suppository Diagnosis/Plan: Subjective Subjective Comments No acute events reported Active Medications Current Medications Medications (Trade) Dose Ordered Sig/Nilo Route Start Time Stop Time Status Last Admin Sodium Chloride 2 ml 2 ml UNSCH PRN IVF 07/10/17 02:15 Propofol 100 ml @ 0 mls/hr TITRATE IV 07/10/17 02:15 07/12/17 14:41 (Cardizem Inj/NS Inj) 125 ml @ 0 mls/hr TITRATE IV 07/10/17 03:45 07/12/17 13:10 (NS Flush) 2 ml UNSCH PRN IV FLUSH 07/10/17 04:15 (NS Flush) 2 ml BID IV FLUSH 07/10/17 09:00 07/12/17 08:02 (Peridex 0.12% Liq) 15 ml BID@08,20 MT 07/10/17 08:00 07/12/17 08:01 Miscellaneous Information 1 Q361D XX 07/10/17 04:15 (Chlorhexidine 2% Cloth) 3 pack Taper DAILY@04 TOP 07/11/17 04:00 07/07/18 03:59 07/12/17 03:30 Chlorhexidine Gluconate 3 pack 3 pack UNSCH PRN TOP 07/10/17 04:15 (Diprivan 1000 Mg/100ml Inj) 100 ml @ 0 mls/hr TITRATE IV 07/10/17 04:15 07/11/17 04:12 Acetaminophen 650 mg 650 mg Q6H PRN OG-TUBE 07/10/17 23:30 07/10/17 23:36 (KCl 20 Meq Premix Inj) 100 ml @ 50 mls/hr Q2H IV 07/12/17 13:00 07/12/17 16:59 07/12/17 14:41 Allergies Allergies Coded Allergies Unable to Assess (Verified Allergy, Unknown, 07/10/17) Exam I&O / VS 07/11/17 07/11/17 07/12/17 15:00 23:00 07:00 Intake Total 861 ml 738 ml 1020 ml Output Total 250 ml 200 ml 100 ml Balance 611 ml 538 ml 920 ml Intake IV Total 861 ml 618 ml 800 ml Tube Feeding 20 ml 120 ml Other 100 ml 100 ml Output Urine Total 250 ml 200 ml 100 ml Vital Signs Date Time Temp Pulse Resp B/P Pulse Ox O2 Delivery O2 Flow Rate FiO2 07/12/17 15:21 100 45 07/12/17 14:00 106 07/12/17 12:00 104 07/12/17 12:00 99.1 104 22 97/65 100 07/12/17 12:00 45 07/12/17 10:12 100 45 07/12/17 10:00 103 07/12/17 08:00 45 07/12/17 08:00 100.3 103 28 98/66 100 07/12/17 08:00 103 07/12/17 07:54 98 45 07/12/17 06:00 105 07/12/17 04:08 99 Ventilator 07/12/17 04:04 100 45 07/12/17 04:00 45 07/12/17 04:00 104 07/12/17 04:00 99.7 104 30 109/71 98 07/12/17 02:00 101 07/12/17 01:05 100 Ventilator 07/12/17 01:03 100 45 07/12/17 00:00 45 07/12/17 00:00 107 07/12/17 00:00 100.8 107 28 113/70 99 07/11/17 22:00 115 07/11/17 21:40 99 Ventilator 07/11/17 21:25 99 45 07/11/17 20:00 105 07/11/17 20:00 100.6 105 12 108/70 99 07/11/17 20:00 45 07/11/17 18:00 110 07/11/17 16:32 97 45 07/11/17 16:00 45 07/11/17 16:00 98.5 104 23 97 07/11/17 16:00 104 Exam Comments nonresponsive on sedation PERRL, EOM intact MOTOR--no spontaneous limb movement Objective Radiology Results MRI--large left MCA stroke, two small areas with some mild associated hemorrhage right parietal --possible metastatic foci Micro and Labs Laboratory Tests Test 07/12/17 07/12/17 07/12/17 07/12/17 06:00 06:27 06:28 09:40 Blood Gas Puncture Site LT RADIAL LT RADIAL RT RADIAL Blood Gas Patient Temperature 98.6 98.6 98.6 Blood Gas HCO3 18 18 18 Blood Gas Base Excess -5.1 -5.1 -5.6 Blood Gas Oxygen Saturation 95 95 68 Arterial Blood pH 7.49 7.49 7.40 Arterial Blood Partial 24 24 30 Pressure CO2 Arterial Blood Partial 98 98 45 Pressure O2 Arterial Blood Oxygen Content 11.4 11.4 8.3 Arterial Blood 2.3 2.3 1.8 Carboxyhemoglobin Arterial Blood Methemoglobin 1.1 1.1 1.0 Blood Gas Hemoglobin 8.4 8.4 8.6 Oxygen Delivery Device VENT VENTILATOR VENT Blood Gas Ventilator Setting [facility] Blood Gas Inspired Oxygen 45 45 45 White Blood Count 10.0 Red Blood Count 2.75 Hemoglobin 8.4 Hematocrit 25.8 Mean Corpuscular Volume 93.9 Mean Corpuscular Hemoglobin 30.7 Mean Corpuscular Hemoglobin 32.6 Concent Red Cell Distribution Width 23.4 Platelet Count 25 Mean Platelet Volume 10.5 Test 07/12/17 09:48 Sodium Level 144 Potassium Level 2.7 Chloride Level 108 Carbon Dioxide Level 19.5 Anion Gap 17 Blood Urea Nitrogen 52 Creatinine 1.66 Estimat Glomerular Filtration 32 Rate Random Glucose 178 Calcium Level 7.4 Protein Corrected Calcium 8.3 Phosphorus Level 4.1 Magnesium Level 2.4 Total Protein 5.5 Date/Time Procedure Status Source Growth 07/10/17 02:15 Aerobic Blood Culture - Preliminary Resulted Blood Peripheral NO GROWTH IN 2 DAYS 07/10/17 02:15 Anaerobic Blood Culture - Final Resulted Bacillus Species Not Anthracis Lex Cortez PhD Jul 12, 2017 15:55
[2017-07-13] MEDS ORDERED: ASPIRIN 300 MG SUPP RECTAL SCH (09:00)
== END 2017-07-12 17:35 | disposition hospice, inpatient (51) | DRG 208 ==
LOC: NEPE 01:45 → NEDA 04:54 → EDBD 04:54 → HIMN 16:40
PROVIDERS: ADMIT Internal Medicine Critical Care Medicine; ATTEND Internal Medicine Critical Care Medicine
PROC: 5A1945Z Respiratory Ventilation, 24-96 Consecutive Hours (ICD-10-PCS; principal; 2017-07-10)
PROC: 0BH17EZ Insertion of Endotracheal Airway into Trachea, Via Natural or Artificial Opening (ICD-10-PCS; 2017-07-10)
PROC: 30233K1 Transfusion of Nonautologous Frozen Plasma into Peripheral Vein, Percutaneous Approach (ICD-10-PCS; 2017-07-10)
PROC: 30233R1 Transfusion of Nonautologous Platelets into Peripheral Vein, Percutaneous Approach (ICD-10-PCS; 2017-07-10)
DX: J96.00 Acute respiratory failure, unspecified whether with hypoxia or hypercapnia (principal); I63.512 Cerebral infarction due to unspecified occlusion or stenosis of left middle cerebral artery; N17.9 Acute kidney failure, unspecified; I82.409 Acute embolism and thrombosis of unspecified deep veins of unspecified lower extremity; C78.7 Secondary malignant neoplasm of liver and intrahepatic bile duct; C79.31 Secondary malignant neoplasm of brain; D69.6 Thrombocytopenia, unspecified; C79.51 Secondary malignant neoplasm of bone; C34.90 Malignant neoplasm of unspecified part of unspecified bronchus or lung; Z92.21 Personal history of antineoplastic chemotherapy; Z86.711 Personal history of pulmonary embolism; Z86.718 Personal history of other venous thrombosis and embolism; I25.10 Atherosclerotic heart disease of native coronary artery without angina pectoris; E78.5 Hyperlipidemia, unspecified; Z92.3 Personal history of irradiation; I71.4 Abdominal aortic aneurysm, without rupture; J44.9 Chronic obstructive pulmonary disease, unspecified; I12.9 Hypertensive chronic kidney disease with stage 1 through stage 4 chronic kidney disease, or unspecified chronic kidney disease; N18.9 Chronic kidney disease, unspecified; Z51.5 Encounter for palliative care; Z66 Do not resuscitate
CPT/HCPCS: 31500; 36430; 36600; 51702; 70450; 70551; 71010; 71275; 74177; 80048; 80053; 80307; 81001; 82140; 82550; 82552; 82805; 82948; 83605; 83690; 83735; 83880; 84100; 84155; 84443; 84484; 85025; 85027; 85610; 85730; 86140; 86850; 86900; 86901; 86927; 87040; 87641; 93005; 93306; 94002; 94003; 94640; 94664; 95819; 96360; 96361; 96365; 96374; C9113; J0330; J1815; J1940; J2543; J2920; J3370; J3480; J7030; J7040; J7050; P9017; P9035; Q9967